=== PATIENT | female | born 1950 | race Caucasian/White ===

== ENCOUNTER → 2017-08-16 | Outpatient (CLI) | payer BC, MEDICARE ==
--- NOTE | 2017-08-17 09:42 | MM ---
Reason for exam: screening (asymptomatic). Last mammogram was performed 1 year ago. History: Patient is postmenopausal and is nulliparous. Implant Removal of both breasts, 2002. Silicone gel implants in both breasts. Took estrogen for 7 years. Physical Findings: A clinical breast exam by your physician is recommended on an annual basis and results should be correlated with mammographic findings. MG 3D Screening Mammo W/Cad Bilateral CC and MLO view(s) were taken. Prior study comparison: August 13, 2016, bilateral MG 3d screening mammo w/cad. August 12, 2015, right breast MG 3d work up w/cad RT. August 05, 2015, bilateral MG screening mammo w CAD. The breast tissue is heterogeneously dense. This may lower the sensitivity of mammography. No significant changes when compared with prior studies. ASSESSMENT: Benign, BI-RAD 2 RECOMMENDATION: Routine screening mammogram of both breasts in 1 year.
== END | disposition home or self-care (01) ==
LOC: RADMAMWWP 06:40
PROVIDERS: ATTEND Family Medicine
DX: Z12.31 Encounter for screening mammogram for malignant neoplasm of breast (principal)
CPT/HCPCS: 77063; 77067

== ENCOUNTER → 2018-08-21 | Outpatient (CLI) | payer BC, MEDICARE ==
--- NOTE | 2018-08-27 09:40 | MM ---
Reason for exam: screening (asymptomatic). Last mammogram was performed 1 year ago. History: Patient is postmenopausal and is nulliparous. Implant Removal of both breasts, 2002. Silicone gel implants in both breasts. Took estrogen for 7 years. MG 3D Screening Mammo W/Cad Bilateral CC, MLO, and ID view(s) were taken. Prior study comparison: August 16, 2017, bilateral MG 3d screening mammo w/cad. August 13, 2016, bilateral MG 3d screening mammo w/cad. There are scattered fibroglandular densities. Silicone granulomas redemonstrated on the left breast. No significant changes when compared with prior studies. ASSESSMENT: Benign, BI-RAD 2 RECOMMENDATION: Routine screening mammogram of both breasts in 1 year.
== END | disposition home or self-care (01) ==
LOC: RADMAMWWP 06:39
PROVIDERS: ATTEND Family Medicine
DX: Z12.31 Encounter for screening mammogram for malignant neoplasm of breast (principal)
CPT/HCPCS: 77063; 77067

== ENCOUNTER → 2019-08-23 | Outpatient (CLI) | payer MEDICARE, BC ==
--- NOTE | 2019-08-24 13:55 | MM ---
Reason for exam: screening (asymptomatic). Last mammogram was performed 1 year ago. History: Patient is postmenopausal and is nulliparous. Implant Removal of both breasts, 2002. Silicone gel implants in both breasts. Took hormonal contraceptives for 7 years. Took estrogen for 7 years. Physical Findings: A clinical breast exam by your physician is recommended on an annual basis and results should be correlated with mammographic findings. MG 3D Screening Mammo W/Cad Bilateral CC and MLO view(s) were taken. Prior study comparison: August 21, 2018, bilateral MG 3d screening mammo w/cad. August 16, 2017, bilateral MG 3d screening mammo w/cad. The breast tissue is heterogeneously dense. This may lower the sensitivity of mammography. There are benign appearing round calcifications bilaterally. There is no new discrete abnormality. Retained silicone inner lower quadrant left breast redemonstrated. ASSESSMENT: Benign, BI-RAD 2 RECOMMENDATION: Routine screening mammogram of both breasts in 1 year.
== END | disposition home or self-care (01) ==
LOC: RADMAMWWP 07:03
PROVIDERS: ATTEND Family Medicine
DX: Z12.31 Encounter for screening mammogram for malignant neoplasm of breast (principal)
CPT/HCPCS: 77063; 77067

== ENCOUNTER → 2019-09-28 | Outpatient (CLI) | payer BC, MEDICARE ==
--- NOTE | 2019-09-28 12:27 | CTL ---
EXAMINATION TYPE: CT Low Dose Lung DATE OF EXAM ORDERED: 09/28/2019 HISTORY: Personal tobacco use history. Lung cancer screening CT DLP: 79.[address] CTDI: 2.4 mGy Automated exposure control for dose reduction was used. SCREENING VISIT: Initial COMPARISON: None TECHNIQUE: Low dose computed tomography scan was performed through the chest at 1 mm thick sections a nd reconstructed images in the coronal plane at [address] DIAGNOSTIC QUALITY: Satisfactory FINDINGS: LUNG NODULES: Present, detailed below: There is a 0.7 cm area of pneumonitis change within the peripheral lateral right lower lung field. Se antonio 4 image 151. Follow-up is recommended. LUNGS: COPD: Severity: None Fibrosis: Severity: None Lymph nodes: None Other findings: None RIGHT PLEURAL SPACE: Effusion: None Calcification: None Thickening: None Pneumothorax: None LEFT PLEURAL SPACE: Effusion: None Calcification: None Thickening: None Pneumothorax: None HEART: Heart Size: Normal Coronary calcification: Mild Pericardial effusion: None OTHER FINDINGS: Upper abdomen: Normal Bony thorax: Normal Supraclavicular region: Normal Other: Ascending thoracic aorta at the level the main pulmonary artery measures 3.4 cm. The main pul monary artery at the bifurcation measures 2.6 cm. Tracheobronchial calcification is noted. IMPRESSION: Probably benign findings right peripheral lung FOLLOW UP CT CHEST RECOMMENDATION: Follow-up standard CT chest [address] LUNG RAD: 3
== END | disposition home or self-care (01) ==
LOC: RADCTMAIN 10:45
PROVIDERS: ATTEND Family Medicine
DX: Z12.2 Encounter for screening for malignant neoplasm of respiratory organs (principal); Z87.891 Personal history of nicotine dependence

== ENCOUNTER → 2020-04-07 | Outpatient (CLI) | payer BC ==
--- NOTE | 2020-04-07 15:36 | CT ---
EXAMINATION TYPE: CT chest wo con DATE OF EXAM: 04/07/2020 COMPARISON: 09/28/2019 HISTORY: pulmonary nodule CT DLP: 189 mGycm, Automated exposure control for dose reduction was used. CONTRAST: Performed injected with 0 mL of Isovue 300. TECHNIQUE: Axial images were obtained at 5 mm thick sections. Reconstructed images are reviewed on [email or web address] computer in the coronal plane. FINDINGS: Portion of the thyroid visualized is normal. There is a small area of pneumonitis in the periphery of the right midlung. Series 4 image 30. This a ppears slightly less intense but measures 0.7 cm essentially unchanged from the comparison. Continued monitoring is recommended. No enlarged mediastinal or hilar adenopathy is evident. The ascending aorta diameter at the level o f the main pulmonary artery is 3.5 cm. The main pulmonary artery diameter at the bifurcation is 2.[address] sections are obtained through the upper abdomen. There is marked hydronephrosis of the rig ht kidney. IMPRESSIONS: 1. Area of pneumonitis within the periphery of the right lung appears slightly improved over the inte rval with a similar sized prior exam. Continued monitoring is recommended. 2. Marked right hydronephrosis additional workup with ultrasound is recommended.
== END | disposition home or self-care (01) ==
LOC: RADCTMAIN 11:37
PROVIDERS: ATTEND Family Medicine
DX: J18.9 Pneumonia, unspecified organism (principal)
CPT/HCPCS: 71250

== ENCOUNTER → 2020-05-02 | Outpatient (CLI) | payer BC ==
--- NOTE | 2020-05-02 12:30 | US ---
EXAMINATION TYPE: US kidneys/renal and bladder DATE OF EXAM: 05/02/2020 COMPARISON: NONE CLINICAL HISTORY: N13.30 HYDRONEPHROSIS. patient states no pain but recent CT showed right hydronephr osis EXAM MEASUREMENTS: Right Kidney: 11.3 x 4.7 x 5.4 cm Left Kidney: 8.9 x 3.3 x 4.2 cm Right Kidney: Severe hydronephrosis seen Left Kidney: No hydronephrosis or masses seen Bladder: wnl Bilateral Jets seen: Yes IMPRESSION: 1. Severe right hydronephrosis.
== END | disposition home or self-care (01) ==
LOC: RADUSWWP 10:37
PROVIDERS: ATTEND Family Medicine
DX: N13.30 Unspecified hydronephrosis (principal)
CPT/HCPCS: 76770

== ENCOUNTER → 2020-06-17 | Outpatient (CLI) | payer BC ==
--- NOTE | 2020-06-17 14:04 | CT ---
EXAMINATION TYPE: CT abdomen pelvis wo con DATE OF EXAM: 06/17/2020 COMPARISON: Ultrasound kidneys 05/02/2020 HISTORY: Hydronephrosis CT DLP: 313.70 mGycm Automated exposure control for dose reduction was used. TECHNIQUE: Helical acquisition of images was performed from the lung bases through the pelvis. CONTRAST: Performed without Oral Contrast and without intravenous contrast. FINDINGS: LUNG BASES: Normal. LIVER: Normal attenuation and size. BILIARY SYSTEM: No intrahepatic or extrahepatic biliary ductal dilatation. PANCREAS: No peripancreatic stranding or fluid collection. SPLEEN: Not enlarged. ADRENALS: Normal. KIDNEYS: The right kidney demonstrates a duplicated renal collecting system. Duplicated right uretera l system is difficult to evaluate without intravenous contrast. There is no hydroureter. There is a n onobstructing 3 mm calculus of the right renal lower pole. The left kidney demonstrates no hydronephr osis, hydroureter, or nephrolithiasis. BOWEL: No obstruction or thickening. Normal appendix. pelvis PERITONEUM: No pneumoperitoneum. No free fluid. LYMPH NODES: No lymphadenopathy. PELVIS: Underdistended urinary bladder. Status post hysterectomy. VASCULATURE: No abdominal aortic aneurysm. MUSCULOSKELETAL: Degenerative changes of the spine. IMPRESSION: 1. 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 Abrupt transition is seen at the ureteropelvic junctions and likely represents stenosis. Recomme nd further evaluation with CT urogram. Presence of duplicated right ureteral system can also be furth er evaluated with CT urogram. 2. Nonobstructing 3 mm right renal calculus. 3. No left hydronephrosis.
== END | disposition home or self-care (01) ==
LOC: RADCTMAIN 10:16
PROVIDERS: ATTEND Urology
DX: N13.2 Hydronephrosis with renal and ureteral calculous obstruction (principal)
CPT/HCPCS: 74176

== ENCOUNTER → 2020-07-11 | Outpatient (CLI) | payer BC ==
--- NOTE | 2020-07-11 11:55 | CT ---
EXAMINATION TYPE: CT urogram wo/w con DATE OF EXAM: 07/11/2020 COMPARISON: 06/17/2020 HISTORY: Unspecified Hydronephrosis CT DLP: 2027 mGycm CONTRAST: Performed and without and with IV Contrast, patient injected with 100 mL of Isovue 300. CT Urography was performed with unenhanced followed by enhanced images of the kidneys, ureters and ur inary bladder. Delayed images were obtained. 3d reconstruction was performed at a separate work sta tion. FINDINGS: KIDNEYS/BLADDER: Identified is a duplicated right-sided renal collecting system with severe hydroneph rosis of both moieties. Delayed images were obtained up to 20 minutes which demonstrate poor visualiz ation of the proximal one third of the right ureter and UPJ. Contrast is seen within the mid and dist al portions of the right ureter which do not appear to be dilated. Suspect congenital or acquired UPJ obstruction or stenosis where the 2 ureters meet proximally. There is nonobstructing calculus lower pole right kidney measuring 3 mm. The left kidney is free of hydronephrosis or nephrolithiasis. No di stinct renal mass. Urinary bladder grossly unremarkable. LUNG BASES-: No visible nodule. No infiltrate. LIVER/GB: No calcified gallstones. No space occupying hepatic lesion. Biliary tree is of normal ca liber. PANCREAS: No inflammation. No distinct mass. SPLEEN: No splenic enlargement. No lesion seen. ADRENALS: No nodule. No thickening. BOWEL: Normal appendix. Normal bowel caliber. No inflammation. GENITAL ORGANS: No gross abnormality. LYMPH NODES: No greater than 1cm abdominal or pelvic lymph nodes are appreciated. AORTA: No significant abnormality. OSSEOUS STRUCTURES: No significant abnormality is seen. OTHER: No significant additional abnormality is seen. IMPRESSION: 1. duplicated right-sided renal collecting system with severe hydronephrosis of both moieties. Suspec t congenital or acquired UPJ obstruction or stenosis where the 2 ureters meet proximally
== END | disposition home or self-care (01) ==
LOC: RADCTMAIN 09:43
PROVIDERS: ATTEND Urology
DX: N13.30 Unspecified hydronephrosis (principal)
CPT/HCPCS: 82565; 84520; 74178; 36415; 74400; Q9967

== ENCOUNTER → 2020-08-25 | Outpatient (CLI) | payer BC ==
[2020-08-25 08:55] LABS: Basophils # (A) 0.1 k/uL (0-0.2); Basophils % (A) 1 %; Eosinophils # (A) 0.2 k/uL (0-0.7); Eosinophils % (A) 3 %; HCT 43.9 % (34.0-46.0); HGB 14.6 gm/dL (11.4-16.0); Lymphocytes # (A) 1.3 k/uL (1.0-4.8); Lymphocytes % (A) 28 %; MCH 30.9 pg (25.0-35.0); MCHC 33.3 g/dL (31.0-37.0); MCV 92.8 fL (80.0-100.0); Monocytes # (A) 0.3 k/uL (0-1.0); Monocytes % (A) 7 %; Neutrophils # (A) 2.8 k/uL (1.3-7.7); Neutrophils % (A) 58 %; Platelet Count 278 k/uL (150-450); RBC 4.73 m/uL (3.80-5.40); RDW 12.7 % (11.5-15.5); WBC 4.7 k/uL (3.8-10.6)
[2020-08-25 09:07] LABS: Calcium 11.5 mg/dL (8.4-10.2); Potassium 4.9 mmol/L (3.5-5.1)
[2020-08-25 09:11] LABS: Amorphous Sediment,Urine Occasional /hpf; Appearance,Urine Cloudy (Clear); Bilirubin,Urine Negative (Negative); Blood,Urine Negative (Negative); Color,Urine Yellow; Glucose,Urine (UA) Negative (Negative); Hyaline Casts,Urine 77 /lpf (0-2); Ketones,Urine Negative (Negative); Leukocyte Esterase,Urine Small (Negative); Mucus,Urine Few /hpf; Nitrite,Urine Negative (Negative); PH, Urine 5.5 (5.0-8.0); Protein,Urine Trace (Negative); RBC,Urine <1 /hpf (0-5); Specific Gravity,Urine 1.023 (1.001-1.035); Squamous Epithelial Cell,Urine 1 /hpf (0-4); Urobilinogen,Urine <2.0 mg/dL (<2.0); WBC,Urine 4 /hpf (0-5)
--- NOTE | 2020-08-25 09:11 | XR ---
EXAMINATION TYPE: XR chest 2V DATE OF EXAM: 08/25/2020 COMPARISON: None HISTORY: 70-year-old female presurgical evaluation. Z01.818,N13.30,R31.1,N20.0 TECHNIQUE: PA and lateral views FINDINGS: The cardiomediastinal silhouette, aorta, and pulmonary vasculature are within normal limits. Mild hyp erinflation likely due to depth of inspiration. Otherwise, lungs and pleural spaces are clear. IMPRESSION: No acute cardiopulmonary process.
== END | disposition home or self-care (01) ==
LOC: LABPAT 07:51
PROVIDERS: ATTEND Urology
DX: Z01.818 Encounter for other preprocedural examination (principal); N20.0 Calculus of kidney; N13.30 Unspecified hydronephrosis; R31.1 Benign essential microscopic hematuria
CPT/HCPCS: 80048; 81001; 85025; 87086

== ENCOUNTER 2020-09-01 08:16 | Day surgery (SDC) | payer BC ==
[2020-08-26 15:35] VITALS: BMI 21.4
[~2020-09-01 08:16] MED LIST: DEXAMETHASONE SOD PHOSPHATE 4 MG/ML 1 ML VIAL IV ONE; HYDROmorphone 0.5 MG/0.5 ML SYRINGE IVP PRN; LACTATED RINGERS 1,000 ML IV SCH; LIDOCAINE 1% (10MG/ML) FOR IV START INTRADERMA PRN; ONDANSETRON 4 MG/2 ML VIAL IVP ONE; SCOPOLAMINE 1.5MG/72HR PATCH TRANSDERM ONE
[2020-09-01 09:37] VITALS: TEMP 98.2
[2020-09-01] MEDS ORDERED: MIDAZOLAM 2 MG/2 ML VIAL IVP ONE (09:46)
--- NOTE | 2020-09-01 09:57 | P.HPIHPCON ---
History of Present Illness H&P Date: 09/01/20 Chief Complaint: Microscopic hematuria, right hydronephrosis, right renal ca lculi This is a 70-year-old female with history of microscopic hematuria. She underwent one a CT urogram that demonstrated evidence of right-sided hydronephrosis, with a duplicated system. There was also a right-sided renal stone. Her urine cytology was concerning for high-grade transitional cell carcinoma. I discussed with her given this finding I recommend we proceed to the OR with a cystoscopy, possible bladder biopsies. I also discussed with him we'll do a right ureteroscopy given her hydronephrosis to rule out malignancy as the cause of her [place]. I discussed with her that we will address her stone on the right side during the ureteroscopy. Discussed with her the risk which includes but not limited to bleeding, infection, injury to the ureter. Discussed all potential of needing future procedures. She understood all the risk and agreed to proceed with cystoscopy, right ureteroscopy, with holmium laser lithotripsy, possible bladder biopsy, possible stent Consent for Procedure: I have explained the operation/procedure to the patient, including the risks, benefits, side effects, alternative therapies (including not receiving the proposed treatment or service), the likelihood of the patient achieving his/her goals, and potential recuperation problems for the procedure/sedation/analgesia, as well as any blood products, if indicated. I also explained to the patient the risks, benefits and side effects of the alternatives, as well as the risks related to not receiving the proposed procedure, care, treatment, or services. Past Medical History Past Medical History: Neurologic Disorder Additional Past Medical History / Comment(s): hx. migraines, kidney stones History of Any Multi-Drug Resistant Organisms: None Reported Past Surgical History: Hysterectomy Additional Past Surgical History / Comment(s): COLONOSCOPY Past Anesthesia/Blood Transfusion Reactions: No Reported Reaction Smoking Status: Former smoker - Past Family History Mother Family Medical History: No Reported History Medications and Allergies Home Medications Medication Instructions Recorded Confirmed Type SUMAtriptan succinate [Imitrex] 50 mg PO ONCE PRN 07/30/14 08/26/20 History Calcium Carbonate [Calcium] 600 mg PO DAILY 06/17/17 08/26/20 History Cholecalciferol [Vitamin D3] 1,000 unit PO DAILY 06/17/17 08/26/20 History Cholecalciferol [Vitamin D3 (25 1,000 unit PO DAILY 08/26/20 08/26/20 History Mcg = 1000 Iu)] Allergies Allergy/AdvReac Type Severity Reaction Status Date / Time No Known Allergies Allergy Verified 09/01/20 09:37 Surgical - Exam Vital Signs Temp Pulse Resp BP Pulse Ox 98.2 F 86 16 142/77 100 09/01/20 09:35 09/01/20 09:35 09/01/20 09:35 09/01/20 09:35 09/01/20 09:35 - General well developed, well nourished, no distress - Respiratory normal expansion, normal respiratory effort - Abdomen Abdomen: soft, non tender Assessment and Plan Assessment: -cystoscopy, right ureteroscopy, with holmium laser lithotripsy, possible bladder biopsy, possible stent
--- NOTE | 2020-09-01 10:08 | XR ---
EXAMINATION TYPE: XR KUB DATE OF EXAM: 09/01/2020 Comparison: None Clinical History: 70-year-old female kidney stones, preop lithotripsy Findings: Nonobstructive bowel gas pattern. Moderate stool in the right side of the abdomen. Scattered colonic ureter extending distally to the rectum. No dilated small bowel loops. 4 mm right mid abdominal calci fication. Phlebolith in the left side of the pelvis. Impression: 4 mm right-sided renal calculus. Nonobstructive bowel gas pattern. Moderate stool in the right side o f the abdomen.
[2020-09-01] MEDS ORDERED: GLYCOPYRROLATE 0.2 MG/ML 2 ML VIAL ONE (10:23)
[2020-09-01] MEDS ORDERED: fentaNYL (PF) 50 MCG/ML 2 ML AMP ONE (10:23)
[2020-09-01] MEDS ORDERED: PROPOFOL 10 MG/ML 50 ML VIAL IV ONE (10:23)
[2020-09-01] MEDS ORDERED: SUCCINYLCHOLINE CHLORIDE 100 MG/5 ML SYR IV ONE (10:23)
[2020-09-01] MEDS ORDERED: LIDOCAINE 1% INJ 10MG/ML (20 ML MDV) ONE (10:23)
--- NOTE | 2020-09-01 12:14 | P.OP ---
Date of Procedure: 09/01/20 Preoperative Diagnosis: Right-sided hydronephrosis, atypical cytology Postoperative Diagnosis: Same Procedure(s) Performed: Cystoscopy, bilateral retrograde pyelogram right ureteroscopy, stent placement, bladder biopsy and fulguration Implants: 6-Iranian by 26 cm stent Anesthesia: LUZMARIA Surgeon: Marcelino Engle Estimated Blood Loss (ml): 5 Pathology: other (Right renal cytology, left renal cytology, right ureteral cytology, bladder biopsy) Condition: stable Disposition: PACU Indications for Procedure: This is a 70-year-old female with history of microscopic hematuria. She underwent one a CT urogram that demonstrated evidence of right-sided hydroneph rosis, with a duplicated system. There was also a right-sided renal stone. Her urine cytology was concerning for high-grade transitional cell carcinoma. I discussed with her given this finding I recommend we proceed to the OR with a cystoscopy, possible bladder biopsies. I also discussed with him we'll do a right ureteroscopy given her hydronephrosis to rule out malignancy as the cause of her [place]. I discussed with her that we will address her stone on the right side during the ureteroscopy. Discussed with her the risk which includes but not limited to bleeding, infection, injury to the ureter. Discussed all potential of needing future procedures. She understood all the risk and agreed to proceed with cystoscopy, right ureteroscopy, with holmium laser lithotripsy, possible bladder biopsy, possible stent Operative Findings: Normal left retrograde pyelogram Cystoscopy showed erythematous area along the trigone and posterior bladder wall, biopsy was taken of both this areas -Right retrograde pyelogram showed severe narrowing tortuosity at the UPJ, no abnormality within the kidney or the ureter. Stone could be partially visualized in the lower pole, and was impacted with him a narrowed infundibulam. Description of Procedure: Patient was brought to the operating room, general anesthesia was induced. She was prepped and draped in sterile fashion a placed in dorsal lithotomy position. Cystoscopy fitted with 21-Iranian sheath was inserted per urethra cystoscopy was performed which showed 2 erythematous area along the trigone and the posterior bladder wall, otherwise cystoscopy was unremarkable. The erythematous areas were biopsied using the biopsy forceps and were thoroughly fulgurated. Attention was then carried to the left ureteral orifice which was intubated with a 6-Iranian open-ended catheter, urine cytology was obtained from the left kidney. Next, a retrograde pyelogram was performed showed no filling defect or hydronephrosis. There was adequate drainage of contrast on that side. Attention was then carried to the right ureteral orifice which was intubated with a 6-Iranian open-ended catheter, retrograde pyelogram was performed on that side showed no filling defect or narrowing along the course of the ureter. At the UPJ there was a pinpoint narrowing, with severe hydronephrosis. Delayed im ages showed no drainage of contrast from the right kidney. This time a sensor wire was advanced through the catheter catheter was removed the wire in place. Next a ureteroscope was advanced over the wire and into the kidney. Of note there was difficulty manipulating the scope past the area of narrowing. Complete renoscopy was performed which showed no abnormality within the kidney. Renal cytology was obtained from the kidney. Of note there was only a single moiety visualized. Stone was partially visualized in the lower pole but it was stuck within a narrowed infundibulum which made access the stone difficult. Additionally there was a concern of losing access into the kidney given the difficulty in advancing the scope into the kidney. Given this finding the stone was not fragmented. At this time pullback ureteroscopy was performed of the UPJ which showed no abnormality but of note there was complete tortuosity and narrowing. At that point there was difficulty passing the wire back into the kidney, but after multiple attempts I was able to advance the wire into the kidney and the scope was backloaded over the wire with some difficulty I was able to reinserted into the kidney. At this time pullback ureteroscopy was performed showed no abnormality within the ureter, of note renal cytology was obtained of the UPJ. At this time the ureteroscope was withdrawn and a 6-Iranian by 26 cm stent was passed over the wire, the proximal curl was visualized on fluoroscopy and the distal curl was visualized using the cystoscope. The bladder was emptied and of the case. The patient tolerated the procedure well was taken to PACU in stable condition
[2020-09-01 12:21] VITALS: RESP 16
--- NOTE | 2020-09-01 13:14 | FL ---
Fluoroscopy HISTORY: Cystoscopy with right stent placement 42 seconds fluoroscopy time supplied to the referring clinician. 1 intraoperative C-arm images docum ent the procedure. See dictated report from urology.
[2020-09-01] MEDS ORDERED: IBUPROFEN 200 MG TAB PO ONE (13:23)
[2020-09-01 13:55] VITALS: PULSE 99
[2020-09-01 13:56] VITALS: BP 147/83
== END 2020-09-01 14:11 | disposition home or self-care (01) ==
LOC: OR 08:16
PROVIDERS: ATTEND Urology
DX: N13.2 Hydronephrosis with renal and ureteral calculous obstruction (principal); R31.29 Other microscopic hematuria; Z87.442 Personal history of urinary calculi; G43.909 Migraine, unspecified, not intractable, without status migrainosus; Z90.710 Acquired absence of both cervix and uterus; Z87.891 Personal history of nicotine dependence; R29.90 Unspecified symptoms and signs involving the nervous system; Z79.899 Other long term (current) drug therapy
CPT/HCPCS: 74420; 74018; 52332; 52224; C2625; C1758 ×4; C1769; J2250; J1100; J0690; J2405; J2001; J3010; J0330; J2704; 88108; 88305

== ENCOUNTER → 2020-10-10 | Outpatient (CLI) | payer BC ==
--- NOTE | 2020-10-13 11:45 | MM ---
Reason for exam: screening (asymptomatic). Last mammogram was performed 1 year and 2 months ago. History: Patient is postmenopausal and is nulliparous. Implant Removal of both breasts, 2002. Silicone gel implants in both breasts. Took hormonal contraceptives for 7 years. Took estrogen for 7 years. Physical Findings: A clinical breast exam by your physician is recommended on an annual basis and results should be correlated with mammographic findings. MG 3D Screening Mammo W/Cad Bilateral CC and MLO view(s) were taken. Prior study comparison: August 23, 2019, bilateral MG 3d screening mammo w/cad. August 21, 2018, bilateral MG 3d screening mammo w/cad. There are scattered fibroglandular densities. Stable asymmetric left regional inner lower quadrant retained silicone. There is no discrete abnormality. ASSESSMENT: Benign, BI-RAD 2 RECOMMENDATION: Routine screening mammogram of both breasts in 1 year.
== END | disposition home or self-care (01) ==
LOC: RADMAMWWP 07:13
PROVIDERS: ATTEND Family Medicine
DX: Z12.31 Encounter for screening mammogram for malignant neoplasm of breast (principal)
CPT/HCPCS: 77063; 77067

== ENCOUNTER → 2021-10-12 | Outpatient (CLI) | payer BC ==
--- NOTE | 2021-10-14 09:21 | MM ---
Reason for exam: screening (asymptomatic). Last mammogram was performed 1 year ago. History: Patient is postmenopausal and is nulliparous. Implant Removal of both breasts, 2002. Silicone gel implants in both breasts. Took hormonal contraceptives for 7 years. Took estrogen for 7 years. Physical Findings: A clinical breast exam by your physician is recommended on an annual basis and results should be correlated with mammographic findings. MG 3D Screening Mammo W/Cad Bilateral CC and MLO view(s) were taken. Prior study comparison: October 10, 2020, bilateral MG 3d screening mammo w/cad. August 23, 2019, bilateral MG 3d screening mammo w/cad. The breast tissue is heterogeneously dense. This may lower the sensitivity of mammography. There is chronic nodularity in the left breast. No significant changes when compared with prior studies. ASSESSMENT: Benign, BI-RAD 2 RECOMMENDATION: Routine screening mammogram of both breasts in 1 year.
== END | disposition home or self-care (01) ==
LOC: RADMAMWWP 07:22
PROVIDERS: ATTEND Family Medicine
DX: Z12.31 Encounter for screening mammogram for malignant neoplasm of breast (principal); Z78.0 Asymptomatic menopausal state
CPT/HCPCS: 77063; 77067

== ENCOUNTER 2022-02-16 12:04 | Inpatient (IN) | payer MEDICARE, BC ==
[2022-02-16] MEDS ORDERED: SODIUM CHLORIDE 0.9% 1,000 ML IV STA (12:12)
[2022-02-16] MEDS ORDERED: DILTIAZEM 5 MG/ML 5 ML VIAL IVP STA (12:12)
[2022-02-16] MEDS ORDERED: DILTIAZEM DRIP BOLUS FROM BAG 1 MG SOLN IV ONE (12:26)
[2022-02-16] MEDS: DILTIAZEM 125 MG in SODIUM CHLORIDE 0.9% 100 ML IV SCH (12:27)
--- NOTE | 2022-02-16 12:37 | XR ---
EXAMINATION TYPE: XR chest 1V portable DATE OF EXAM: 02/16/2022 Comparison: 08/25/2020 Clinical History: 71-year-old female chest pain Findings: Heart upper limits of normal in size. Perihilar interstitial density especially in the mid and lower lungs. Patchy lower lung opacities are also noted. Impression: Borderline heart size and some interstitial and perihilar density. Correlate for mild CHF with pulmon jonathan vascular congestion. Mild patchy lower lung areas of atelectasis and/or early infiltrates also no donaldo.
[2022-02-16 12:54] LABS: Basophils # (A) 0.1 k/uL (0-0.2); Basophils % (A) 1 %; Eosinophils # (A) 0.1 k/uL (0-0.7); Eosinophils % (A) 1 %; HGB 12.5 gm/dL (11.4-16.0); Lymphocytes # (A) 1.5 k/uL (1.0-4.8); Lymphocytes % (A) 20 %; MCH 32.2 pg (25.0-35.0); MCHC 33.8 g/dL (31.0-37.0); MCV 95.5 fL (80.0-100.0); Mean Platelet Volume 8.3; Monocytes # (A) 0.5 k/uL (0-1.0); Monocytes % (A) 6 %; Neutrophils # (A) 5.5 k/uL (1.3-7.7); Neutrophils % (A) 71 %; Platelet Count 347 k/uL (150-450); RBC 3.87 m/uL (3.80-5.40); RDW 14.1 % (11.5-15.5); WBC 7.7 k/uL (3.8-10.6)
[2022-02-16 13:15] LABS: Prothrombin Time 11.2 sec (9.0-12.0)
[2022-02-16 13:19] LABS: Albumin 3.8 g/dL (3.5-5.0); Calcium 8.7 mg/dL (8.4-10.2); Potassium 4.2 mmol/L (3.5-5.1); Total Bilirubin 0.5 mg/dL (0.2-1.3); Total Protein 6.2 g/dL (6.3-8.2)
[2022-02-16 13:32] LABS: Partial Thromboplastin Time 20.7 sec (22.0-30.0)
[2022-02-16] MEDS ORDERED: HEPARIN SODIUM 1,000 UN/ML (10ML VL) IV ONE (14:59)
[2022-02-16] MEDS ORDERED: HEPARIN SODIUM 1,000 UN/ML (10ML VL) IV PRN (14:59)
[2022-02-16] MEDS ORDERED: SUMAtriptan succinate 50 MG TAB PO PRN (15:01)
[2022-02-16] MEDS ORDERED: ONDANSETRON 4 MG/2 ML VIAL IVP PRN (15:10)
[2022-02-16] MEDS ORDERED: TEMAZEPAM 15 MG CAP PO PRN (15:10)
[2022-02-16] MEDS ORDERED: NALOXONE 0.4 MG/ML 1 ML VIAL IV PRN (15:10)
[2022-02-16] MEDS ORDERED: DOCUSATE 100 MG CAP PO PRN (15:10)
[2022-02-16] MEDS ORDERED: HYDROcodone/APAP 5-325MG 1 EACH TAB PO PRN (15:10)
--- NOTE | 2022-02-16 15:10 | ED ---
Arrhythmia/Palpitations HPI - General Chief Complaint: Arrhythmia/Palpitations Stated Complaint: rapid heart rate Time Seen by Provider: 02/16/22 12:05 Source: patient Mode of arrival: EMS - History of Present Illness Initial Comments: Patient complains of palpitations. Her symptoms have been present for 3 days. Nothing makes it better or worse. She has no chest pain or pressure or tightness. She has no nausea or vomiting. She has no diaphoresis. She denies any recent long plane or car rides. She denies any sick contacts. She has no calf pain or swelling. She has taken no medicines for this. She wasn't doing anything when it began. - Related Data Home Medications Medication Instructions Recorded Confirmed SUMAtriptan succinate [Imitrex] 50 mg PO DAILY PRN 07/30/14 02/16/22 Calcium Carbonate [Calcium] 600 mg PO DAILY 06/17/17 02/16/22 Cholecalciferol [Vitamin D3 (25 50 mcg PO DAILY 02/16/22 02/16/22 Mcg = 1000 Iu)] Allergies Allergy/AdvReac Type Severity Reaction Status Date / Time No Known Allergies Allergy Verified 02/16/22 13:49 Review of Systems ROS Statement: Those systems with pertinent positive or pertinent negative responses have been documented in the HPI. ROS Other: All systems not noted in ROS Statement are negative. Past Medical History Past Medical History: Neurologic Disorder Additional Past Medical History / Comment(s): hx. migraines History of Any Multi-Drug Resistant Organisms: None Reported Past Surgical History: Hysterectomy Additional Past Surgical History / Comment(s): COLONOSCOPY Past Anesthesia/Blood Transfusion Reactions: No Reported Reaction Past Psychological History: No Psychological Hx Reported Smoking Status: Former smoker Past Alcohol Use History: Occasional Past Drug Use History: None Reported - Past Family History Mother Family Medical History: No Reported History General Exam General appearance: alert, in no apparent distress Head exam: Present: atraumatic, normocephalic, normal inspection Eye exam: Present: normal appearance, PERRL, EOMI. Absent: scleral icterus, conjunctival injection, periorbital swelling ENT exam: Present: normal exam, mucous membranes moist Neck exam: Present: normal inspection. Absent: tenderness, meningismus, lymphadenopathy Respiratory exam: Present: normal lung sounds bilaterally. Absent: respiratory distress, wheezes, rales, rhonchi, stridor Cardiovascular Exam: Present: tachycardia, normal heart sounds. Absent: systolic murmur, diastolic murmur, rubs, gallop, clicks GI/Abdominal exam: Present: soft, normal bowel sounds. Absent: distended, tenderness, guarding, rebound, rigid Extremities exam: Present: normal inspection, full ROM, normal capillary refill. Absent: tenderness, pedal edema, joint swelling, calf tenderness Back exam: Present: normal inspection Neurological exam: Present: alert, oriented X3, CN II-XII intact Psychiatric exam: Present: normal affect, normal mood Skin exam: Present: warm, dry, intact, normal color. Absent: rash Course Vital Signs 02/16/22 02/16/22 02/16/22 12:05 12:20 12:30 Temperature 98.1 F Pulse Rate 172 H 172 H 93 Respiratory 18 22 16 Rate Blood Pressure 119/100 120/106 119/100 O2 Sat by Pulse 96 98 98 Oximetry 02/16/22 02/16/22 02/16/22 12:40 13:10 13:24 Temperature Pulse Rate 109 H 120 H 140 H Respiratory 16 20 20 Rate Blood Pressure 141/95 129/100 139/83 O2 Sat by Pulse 97 96 98 Oximetry 02/16/22 14:56 Temperature Pulse Rate 140 H Respiratory 18 Rate Blood Pressure 130/106 O2 Sat by Pulse 92 L Oximetry EKG Findings - EKG Comments: EKG Findings:: Twelve-lead EKG shows ventricular rate 166 bpm, no P waves present, no ST elevation or depression, interpreted by me as atrial fibrillation with rapid ventricular response. Medical Decision Making - Medical Decision Making Patient presents with palpitations. Her twelve-lead EKG shows atrial fibrillation. I gave her a bolus of IV Cardizem and placed her on a Cardizem drip. I also ordered IV heparin. I have consult to cardiology. Patient will be admitted to the hospital. - Lab Data Result diagrams: 02/16/22 12:26 02/16/22 12:26 Lab Results 02/16/22 02/16/22 02/16/22 Range/Units 12:26 12:26 12:26 WBC 7.7 (3.8-10.6) k/uL RBC 3.87 (3.80-5.40) m/uL Hgb 12.5 (11.4-16.0) gm/dL Hct 37.0 (34.0-46.0) % MCV 95.5 (80.0-100.0) fL MCH 32.2 (25.0-35.0) pg MCHC 33.8 (31.0-37.0) g/dL RDW 14.1 (11.5-15.5) % Plt Count 347 (150-450) k/uL MPV 8.3 Neutrophils % 71 % Lymphocytes % 20 % Monocytes % 6 % Eosinophils % 1 % Basophils % 1 % Neutrophils # 5.5 (1.3-7.7) k/uL Lymphocytes # 1.5 (1.0-4.8) k/uL Monocytes # 0.5 (0-1.0) k/uL Eosinophils # 0.1 (0-0.7) k/uL Basophils # 0.1 (0-0.2) k/uL PT 11.2 (9.0-12.0) sec INR 1.0 (<1.2) APTT 20.7 L (22.0-30.0) sec Sodium 138 (137-145) mmol/L Potassium 4.2 (3.5-5.1) mmol/L Chloride 108 H (98-107) mmol/L Carbon Dioxide 21 L (22-30) mmol/L Anion Gap 9 mmol/L BUN 23 H (7-17) mg/dL Creatinine 0.90 (0.52-1.04) mg/dL Est GFR (CKD-EPI)AfAm 75 (>60 ml/min/1.73 sqM) Est GFR (CKD-EPI)NonAf 65 (>60 ml/min/1.73 sqM) Glucose 93 (74-99) mg/dL Calcium 8.7 (8.4-10.2) mg/dL Magnesium 2.0 (1.6-2.3) mg/dL Total Bilirubin 0.5 (0.2-1.3) mg/dL AST 52 H (14-36) U/L ALT 62 H (4-34) U/L Alkaline Phosphatase 94 (38-126) U/L Troponin I (0.000-0.034) ng/mL NT-Pro-B Natriuret Pep pg/mL Total Protein 6.2 L (6.3-8.2) g/dL Albumin 3.8 (3.5-5.0) g/dL 02/16/22 02/16/22 Range/Units 12:26 12:26 WBC (3.8-10.6) k/uL RBC (3.80-5.40) m/uL Hgb (11.4-16.0) gm/dL Hct (34.0-46.0) % MCV (80.0-100.0) fL MCH (25.0-35.0) pg MCHC (31.0-37.0) g/dL RDW (11.5-15.5) % Plt Count (150-450) k/uL MPV Neutrophils % % Lymphocytes % % Monocytes % % Eosinophils % % Basophils % % Neutrophils # (1.3-7.7) k/uL Lymphocytes # (1.0-4.8) k/uL Monocytes # (0-1.0) k/uL Eosinophils # (0-0.7) k/uL Basophils # (0-0.2) k/uL PT (9.0-12.0) sec INR (<1.2) APTT (22.0-30.0) sec Sodium (137-145) mmol/L Potassium (3.5-5.1) mmol/L Chloride (98-107) mmol/L Carbon Dioxide (22-30) mmol/L Anion Gap mmol/L BUN (7-17) mg/dL Creatinine (0.52-1.04) mg/dL Est GFR (CKD-EPI)AfAm (>60 ml/min/1.73 sqM) Est GFR (CKD-EPI)NonAf (>60 ml/min/1.73 sqM) Glucose (74-99) mg/dL Calcium (8.4-10.2) mg/dL Magnesium (1.6-2.3) mg/dL Total Bilirubin (0.2-1.3) mg/dL AST (14-36) U/L ALT (4-34) U/L Alkaline Phosphatase (38-126) U/L Troponin I 0.014 (0.000-0.034) ng/mL NT-Pro-B Natriuret Pep 4520 pg/mL Total Protein (6.3-8.2) g/dL Albumin (3.5-5.0) g/dL Critical Care Time Critical Care Time: Yes Total Critical Care Time: 35 Disposition Clinical Impression: Atrial fibrillation Disposition: ADMITTED IP TO THIS HOSP Condition: Fair Referrals: Babar Farr MD [Primary Care Provider] - 1-2 days
[2022-02-16] MEDS ORDERED: FUROSEMIDE 10 MG/ML 2 ML VIAL IV SCH (15:15)
[2022-02-16 15:58] LABS: Basophils # (A) 0.1 k/uL (0-0.2); Basophils % (A) 1 %; Eosinophils # (A) 0.1 k/uL (0-0.7); Eosinophils % (A) 1 %; HCT 36.3 % (34.0-46.0); HGB 12.3 gm/dL (11.4-16.0); Lymphocytes # (A) 1.4 k/uL (1.0-4.8); Lymphocytes % (A) 20 %; MCH 32.1 pg (25.0-35.0); MCHC 33.8 g/dL (31.0-37.0); Monocytes # (A) 0.3 k/uL (0-1.0); Monocytes % (A) 5 %; Neutrophils % (A) 72 %; Platelet Count 310 k/uL (150-450); RBC 3.82 m/uL (3.80-5.40); RDW 14.2 % (11.5-15.5)
[2022-02-16] MEDS: HEPARIN SOD,PORK IN 0.45% NACL 25,000 UNIT in 0.45% NACL 1 250ML.BAG IV SCH (15:58)
[2022-02-16 16:30] LABS: Partial Thromboplastin Time 22.7 sec (22.0-30.0); Prothrombin Time 11.1 sec (9.0-12.0)
--- NOTE | 2022-02-16 17:24 | P.HPIM ---
History of Present Illness H&P Date: 02/16/22 History of Presenting Illness: Patient is a very pleasant 71-year-old female with a past medical history of chronic migraines. She presented to the emergency department with a chief complaint of palpitations. Patient reports these palpitations began 3 days ago while working outside in her yard. Patient reports that she noticed these palpitations worsened with the heat and with exertion, and states that she has been much more fatigued than her baseline normal. She denied having any headache, lightheadedness, dizziness, chest pain, shortness of breath, or experiencing any numbness/tingling/weakness/swelling in her extremities. Patient denies history of cardiac arrhythmias or after being seen by a senior contract specialist. She reports that she follows yearly with her PCP and states up until this point has been in good health with no problems. Patient underwent full evaluation in the emergency department. An EKG was completed revealing atrial fibrillation with RVR to 166 bpm. Chest x-ray revealing borderline heart size with some interstitial and perihilar density correlating for mild CHF with pulmonary vascular congestion. Labs completed. CBC unremarkable. Coags normal findings. CMP revealing mildly elevated AST of 52 and ALT of 62. Troponin negative at 0.014 with repeat troponin of less than 0.012. ProBNP 4520. Patient was admitted under our services with consultation to cardiology for new onset atrial fibrillation with RVR and acute heart failure. Review of systems: Pertinent positives and negatives as discussed in HPI, a complete review of systems was performed and all other systems are negative. Physical exam: Vital signs reviewed and stable. General: Nontoxic, no distress and appears stated age. Derm: Skin warm and dry, normal coloration for ethnicity. Head: Atraumatic, normocephalic and symmetric. Eyes: EOMs intact, no lid lag, and anicteric sclera Mouth: no lip lesions, mucus membranes moist Cardiovascular: Irregularly irregular, rapid rate. no murmur, positive posterior tibial pulses bilaterally, and cap refill < 2 seconds. Scant swelling of bilateral lower extremities. Lungs: Respirations even, regular, and unlabored on room air. Lungs CTA bilaterally, no rhonchi, no rales, no wheezing, and no accessory muscle usage. Abdominal: soft, nontender to palpation, no guarding, no appreciable organomegaly Ext: ROM intact. No gross muscle atrophy, no edema, no contractures Neuro: Speech clear, face symmetrical and CN II-XII grossly intact with no noted focal neuro deficits Psych: Alert and oriented to person, place, time, and situation. Appropriate and pleasant affect. Assessment and Plan of Care: New onset Atrial fibrillation with rapid ventricular rate Acute heart failure, unknown type pending echocardiogram results -Patient started on anticoagulation with heparin bolus followed by infusion. [id number] score 2 for gender and age. -Cardizem bolus followed by infusion, titrate to obtain -Start patient on metoprolol 25 mg daily -Cardiology consulted, appreciate further recommendations -Telemetry monitoring -Trend troponins -Cardiac diet, NPO at midnight -Aspirin, atorvastatin, and metoprolol -Echocardiogram The patient is admitted with an anticipated greater than 2 midnight stay for evaluation of new onset A. fib RVR and acute heart failure CODE STATUS: Full code DVT prophylaxis: Heparin Discussed with: Patient and RN Anticipated discharge date: 2-[address]: Home A total of 44 minutes was spent on the care of this complex patient more than 50% of the time was spent in counseling and care coordination. Andrey Ma NP rendered care for this patient independently, reviewed the findings and plan as documented in the note above. I did not physically speak with or examine the patient on this date. Past Medical History Past Medical History: Neurologic Disorder Additional Past Medical History / Comment(s): hx. migraines History of Any Multi-Drug Resistant Organisms: None Reported Past Surgical History: Hysterectomy Additional Past Surgical History / Comment(s): COLONOSCOPY Past Anesthesia/Blood Transfusion Reactions: No Reported Reaction Past Psychological History: No Psychological Hx Reported Smoking Status: Former smoker Past Alcohol Use History: Occasional Past Drug Use History: None Reported - Past Family History Mother Family Medical History: No Reported History Medications and Allergies Home Medications Medication Instructions Recorded Confirmed Type SUMAtriptan succinate [Imitrex] 50 mg PO DAILY PRN 07/30/14 02/16/22 History Calcium Carbonate [Calcium] 600 mg PO DAILY 06/17/17 02/16/22 History Cholecalciferol [Vitamin D3 (25 50 mcg PO DAILY 02/16/22 02/16/22 History Mcg = 1000 Iu)] Allergies Allergy/AdvReac Type Severity Reaction Status Date / Time No Known Allergies Allergy Verified 02/16/22 13:49 Physical Exam Osteopathic Statement: *. No significant issues noted on an osteopathic structural exam other than those noted in the History and Physical/Consult. Vitals: Vital Signs Temp Pulse Resp BP Pulse Ox 02/16/22 14:56 140 H 18 130/106 92 L 02/16/22 13:24 140 H 20 139/83 98 02/16/22 13:10 120 H 20 129/100 96 02/16/22 12:40 109 H 16 141/95 97 02/16/22 12:30 93 16 119/100 98 02/16/22 12:20 172 H 22 120/106 98 02/16/22 12:05 98.1 F 172 H 18 119/100 96 Intake and Output 02/16/22 02/16/22 02/16/22 06:59 14:59 22:59 Other: Weight 58.513 kg Results CBC & Chem 7: 02/16/22 14:59 02/16/22 12:26 Labs: Abnormal Lab Results - Last 24 Hours (Table) 02/16/22 02/16/22 Range/Units 12:26 12:26 APTT 20.7 L (22.0-30.0) sec Chloride 108 H (98-107) mmol/L Carbon Dioxide 21 L (22-30) mmol/L BUN 23 H (7-17) mg/dL AST 52 H (14-36) U/L ALT 62 H (4-34) U/L Total Protein 6.2 L (6.3-8.2) g/dL
[2022-02-16] MEDS ORDERED: METOPROLOL SUCCINATE (ER) 25 MG TAB.ER.24H PO SCH (17:30)
[2022-02-17 08:16] LABS: Basophils # (A) 0.1 k/uL (0-0.2); Basophils % (A) 1 %; Eosinophils # (A) 0.2 k/uL (0-0.7); Eosinophils % (A) 2 %; HCT 37.7 % (34.0-46.0); HGB 12.6 gm/dL (11.4-16.0); Hypochromasia Slight; Lymphocytes # (A) 1.7 k/uL (1.0-4.8); Lymphocytes % (A) 21 %; MCH 31.9 pg (25.0-35.0); MCHC 33.5 g/dL (31.0-37.0); MCV 95.1 fL (80.0-100.0); Mean Platelet Volume 8.1; Monocytes # (A) 0.4 k/uL (0-1.0); Monocytes % (A) 5 %; Neutrophils # (A) 5.4 k/uL (1.3-7.7); Neutrophils % (A) 69 %; Platelet Count 334 k/uL (150-450); RBC 3.96 m/uL (3.80-5.40); WBC 7.8 k/uL (3.8-10.6)
[2022-02-17 08:30] LABS: Partial Thromboplastin Time 26.5 sec (22.0-30.0); Prothrombin Time 10.8 sec (9.0-12.0)
[2022-02-17 08:39] LABS: Calcium 8.6 mg/dL (8.4-10.2)
[2022-02-17] MEDS ORDERED: HEPARIN SODIUM 1,000 UN/ML (10ML VL) MISCELLANE ONE ×2 (09:02→18:35)
[2022-02-17] MEDS: DILTIAZEM 125 MG in SODIUM CHLORIDE 0.9% 100 ML IV SCH (09:31)
[2022-02-17] MEDS: CALCIUM CARBONATE 500 MG CHEWABLE PO SCH (09:32)
[2022-02-17] MEDS: METOPROLOL SUCCINATE (ER) 50 MG TAB.ER.24H PO SCH (09:32)
[2022-02-17] MEDS: FUROSEMIDE 10 MG/ML 4 ML VIAL IV SCH (09:32)
[2022-02-17] MEDS: CHOLECALCIFEROL 25 MCG (1000 IU) TABLET PO SCH (09:33)
[2022-02-17] MEDS ORDERED: DEXTROSE 5% IN WATER 100 ML with AMIODARONE 150 MG IV ONE (11:45)
[2022-02-17] MEDS ORDERED: AMIODARONE 360 MG in DEXTROSE 5% IN WATER 200 ML IV ONE ×2 (12:00)
--- NOTE | 2022-02-17 12:16 | P.CRDCN ---
History of Present Illness History of present illness: HISTORY OF PRESENTING ILLNESS This is a pleasant 71-year-old female past medical history significant for migraines. She does not follow with a retort unloader. We have been asked to see in consultation for new onset atrial fibrillation. Patient comes to the ER with shortness of breath and palpitations. She states yesterday she was working outside in her yard and had symptoms of shortness and palpitations. She initially thought it was the heat but her symptoms did not improve. She had asso ciated fatigue and lightheadedness. No syncope. An EKG was completed revealing atrial fibrillation with RVR HR 160s. Denies symptoms of chest pain, palpitations, dizziness, syncope or near syncope. Denies any symptoms of orthopnea or PND. Patient denies history of A fib, heart failure, Diabetes, S troke, HTN, PR, Hyperlipidemia. Former smoker quit 20+ years ago. Occasionally drinks alcohol. No illicit drug use. DIAGNOSTICS EKG reveals atrial fibrillation with rapid ventricular response, heart rate 166. Telemetry tracings indicate atrial fibrillation with heart rate [id number] Chest xray heart Limits of normal, some mild pulmonary vascular congestion. Laboratory reviewed, CBC unremarkable, troponin negative 3, TSH within normal limits, sodium 137, potassium 4.0, BUN 23, serum and 0.8, pro-BNP 4520 Current home medications include vitamin D3, Imitrex, calcium. REVIEW OF SYSTEMS At the time of my exam: CONSTITUTIONAL: Denies fever or chills. CARDIOVASCULAR: Denies chest pain, Reports shortness of breath, Denies orthopnea, PND. Reports palpitations. RESPIRATORY: Denies cough. GASTROINTESTINAL: Denies abdominal pain, diarrhea, constipation, nausea or vomiting. MUSCULOSKELETAL: Denies myalgias. NEUROLOGIC: Denies numbness, tingling, headacbe or weakness. ENDOCRINE: Denies fatigue, weight change, polydipsia or polyurina. GENITOURINARY: Denies burning, hematuria or urgency with micturation. HEMATOLOGIC: Denies history of anemia or bleeding. PHYSICAL EXAMINATION Vitals Reviewed CONSTITUTIONAL: No apparent distress. HEENT: Head is normocephalic. Pupils are equal, round. Sclerae anicteric. Mucous membranes of the mouth are moist. No JVD. No carotid bruit. CHEST EXAMINATION: Lungs are clear to auscultation. No chest wall tenderness is noted on palpation or with deep breathing. HEART EXAMINATION Irregular rate and rhythm. S1, S2 heard. No murmurs, gallops or rub. ABDOMEN: Soft, nontender. Positive bowel sounds. EXTREMITIES: 2+ peripheral pulses, no lower extremity edema and no calf tenderness. SKIN: warm, dry NEUROLOGIC EXAMINATION: Patient is awake, alert and oriented x3. ASSESSMENT New onset paroxysmal atrial fibrillation with RVR -[id number] score 2 History of Migraines PLAN Metoprolol 50mg daily Continue IV heparin Stop IV Cardizem Start IV amiodarone bolus and drip Continue cardiac telemetry Eliquis sent to pharmacy with case management assistance on cost Further recommendations based on clinical course Keep NPO after midnight if cardioversion is indicated. Nurse practitioner note has been reviewed by physician. Signing provider agrees with the documented findings, assessment, and plan of care. Past Medical History Past Medical History: Neurologic Disorder Additional Past Medical History / Comment(s): hx. migraines History of Any Multi-Drug Resistant Organisms: None Reported Past Surgical History: Hysterectomy Additional Past Surgical History / Comment(s): COLONOSCOPY Past Anesthesia/Blood Transfusion Reactions: No Reported Reaction Past Psychological History: No Psychological Hx Reported Smoking Status: Former smoker Past Alcohol Use History: Occasional Past Drug Use History: None Reported - Past Family History Mother Family Medical History: No Reported History Medications and Allergies Home Medications Medication Instructions Recorded Confirmed Type SUMAtriptan succinate [Imitrex] 50 mg PO DAILY PRN 07/30/14 02/16/22 History Calcium Carbonate [Calcium] 600 mg PO DAILY 06/17/17 02/16/22 History Cholecalciferol [Vitamin D3 (25 50 mcg PO DAILY 02/16/22 02/16/22 History Mcg = 1000 Iu)] Apixaban [Eliquis] 5 mg PO BID #60 tab 02/17/22 Rx Allergies Allergy/AdvReac Type Severity Reaction Status Date / Time No Known Allergies Allergy Verified 02/16/22 13:49 Physical Exam Vitals: Vital Signs Temp Pulse Pulse Pulse Resp BP BP 02/17/22 04:00 98.0 F 100 16 128/85 02/17/22 02:00 92 16 02/17/22 00:15 98.1 F 92 16 135/75 02/16/22 20:40 102 H 102 H 16 02/16/22 20:33 98.2 F 102 H 98 16 02/16/22 19:22 138 H 18 143/99 02/16/22 18:34 97.8 F 168 H 18 138/96 02/16/22 17:13 142 H 18 145/106 02/16/22 14:56 140 H 18 130/106 02/16/22 13:24 140 H 20 139/83 02/16/22 13:10 120 H 20 129/100 02/16/22 12:40 109 H 16 141/95 02/16/22 12:30 93 16 119/100 02/16/22 12:20 172 H 22 120/106 02/16/22 12:05 98.1 F 172 H 18 119/100 Pulse Ox 02/17/22 04:00 90 L 02/17/22 02:00 02/17/22 00:15 91 L 02/16/22 20:40 02/16/22 20:33 92 L 02/16/22 19:22 98 02/16/22 18:34 98 02/16/22 17:13 100 02/16/22 14:56 92 L 02/16/22 13:24 98 02/16/22 13:10 96 02/16/22 12:40 97 02/16/22 12:30 98 02/16/22 12:20 98 02/16/22 12:05 96 Intake and Output 02/16/22 02/17/22 02/17/22 22:59 06:59 14:59 Intake Total 41.43 41.398 Output Total 100 Balance 41.43 -58.602 Intake: Intake, IV Titration 41.43 41.398 Amount Heparin Sod,Pork in 0.45% 41.43 41.398 NaCl 25,000 unit In 0.45 % NaCl 1 250ml.bag @ 12 UNITS/KG/HR 7.022 mls/hr IV .Q24H [facility] Rx#: [id number] Output: Urine 100 Other: Voiding Method Toilet Toilet # Voids 1 Weight 58.513 kg 68.7 kg Results 02/17/22 07:14 02/17/22 07:14 Cardiac Enzymes 02/16/22 02/16/22 02/16/22 Range/Units 12:26 12:26 15:26 AST 52 H (14-36) U/L Troponin I 0.014 <0.012 (0.000-0.034) ng/mL 02/16/22 Range/Units 17:59 AST (14-36) U/L Troponin I 0.013 (0.000-0.034) ng/mL Coagulation 02/16/22 02/16/22 02/16/22 Range/Units 12:26 14:59 20:45 PT 11.2 11.1 (9.0-12.0) sec APTT 20.7 L 22.7 25.5 (22.0-30.0) sec 02/17/22 Range/Units 00:38 PT (9.0-12.0) sec APTT 47.6 H (22.0-30.0) sec CBC 02/16/22 02/16/22 Range/Units 12:26 14:59 WBC 7.7 7.0 (3.8-10.6) k/uL RBC 3.87 3.82 (3.80-5.40) m/uL Hgb 12.5 12.3 (11.4-16.0) gm/dL Hct 37.0 36.3 (34.0-46.0) % Plt Count 347 310 (150-450) k/uL Comprehensive Metabolic Panel 02/16/22 Range/Units 12:26 Sodium 138 (137-145) mmol/L Potassium 4.2 (3.5-5.1) mmol/L Chloride 108 H (98-107) mmol/L Carbon Dioxide 21 L (22-30) mmol/L BUN 23 H (7-17) mg/dL Creatinine 0.90 (0.52-1.04) mg/dL Glucose 93 (74-99) mg/dL Calcium 8.7 (8.4-10.2) mg/dL AST 52 H (14-36) U/L ALT 62 H (4-34) U/L Alkaline Phosphatase 94 (38-126) U/L Total Protein 6.2 L (6.3-8.2) g/dL Albumin 3.8 (3.5-5.0) g/dL Current Medications Generic Name Dose Route Start Last Admin Trade Name Freq PRN Reason Stop Dose Admin Hydrocodone Bitart/Acetaminophen 1 each 02/16/22 15:10 02/16/22 18:40 Hydrocodone/Apap 5-325mg 1 Each Tab PO 1 each Q4HR PRN Administration Moderate Pain Calcium Carbonate/Glycine 500 mg 02/17/22 09:00 Calcium Carbonate 500 Mg Chewable PO DAILY [facility] Cholecalciferol 50 mcg 02/17/22 09:00 Cholecalciferol 25 Mcg (1000 Iu) Tablet PO DAILY [facility] Docusate Sodium 100 mg 02/16/22 15:10 Docusate 100 Mg Cap PO BID PRN Constipation Furosemide 20 mg 02/16/22 15:15 02/16/22 16:04 Furosemide 10 Mg/Ml 2 Ml Vial IV 20 mg DAILY [facility] Administration Heparin Sodium (Porcine) 0 unit 02/16/22 14:59 02/16/22 22:01 Heparin Sodium 1,000 Un/Ml (10ml Vl) IV 2,900 unit PER PROTOCOL PRN Administration Low PTT Protocol Diltiazem HCl 125 mg/ Sodium 125 mls @ 5 mls/hr 02/16/22 12:15 02/16/22 12:27 Chloride IV 5 mg/hr .Q24H [facility] 5 mls/hr Administration Protocol 5 MG/HR Heparin Sodium/Sodium Chloride 250 mls @ 7.022 mls/hr 02/16/22 15:00 02/17/22 02:35 25,000 unit/ Sodium Chloride IV 15 units/kg/hr .Q24H [facility] 8.777 mls/hr Titration Protocol 12 UNITS/KG/HR Metoprolol Succinate 25 mg 02/16/22 17:30 02/16/22 18:43 Metoprolol Succinate (Er) 25 Mg Tab.Er.24h PO 25 mg DAILY [facility] Administration Naloxone HCl 0.2 mg 02/16/22 15:10 Naloxone 0.4 Mg/Ml 1 Ml Vial IV Q2M PRN Opioid Reversal Ondansetron HCl 4 mg 02/16/22 15:10 Ondansetron 4 Mg/2 Ml Vial IVP Q8HR PRN Nausea And Vomiting Sumatriptan Succinate 50 mg 02/16/22 15:01 Sumatriptan Succinate 50 Mg Tab PO DAILY PRN Migraine Headache Temazepam 15 mg 02/16/22 15:10 Temazepam 15 Mg Cap PO HS PRN Insomnia Intake and Output 02/16/22 02/17/22 02/17/22 22:59 06:59 14:59 Intake Total 41.43 41.398 Output Total 100 Balance 41.43 -58.602 Intake: Intake, IV Titration 41.43 41.398 Amount Heparin Sod,Pork in 0.45% 41.43 41.398 NaCl 25,000 unit In 0.45 % NaCl 1 250ml.bag @ 12 UNITS/KG/HR 7.022 mls/hr IV .Q24H [facility] Rx#: [id number] Output: Urine 100 Other: Voiding Method Toilet Toilet # Voids 1 Weight 58.513 kg 68.7 kg 02/16/22 14:59 02/16/22 12:26
--- NOTE | 2022-02-17 15:01 | P.PN ---
Subjective Progress Note Date: 02/17/22 History of Presenting Illness: Patient is a very pleasant 71-year-old female with a past medical history of chronic migraines. She presented to the emergency department with a chief co mplaint of palpitations. Patient reports these palpitations began 3 days ago while working outside in her yard. Patient reports that she noticed these palpitations worsened with the heat and with exertion, and states that she has been much more fatigued than her baseline normal. She denied having any headache, lightheadedness, dizziness, chest pain, shortness of breath, or experiencing any numbness/tingling/weakness/swelling in her extremities. Patient denies history of cardiac arrhythmias or after being seen by a trench digger. She reports that she follows yearly with her PCP and states up until this point has been in good health with no problems. Patient underwent full evaluation in the emergency department. An EKG was completed revealing atrial fibrillation with RVR to 166 bpm. Chest x-ray revealing borderline heart size with some interstitial and perihilar density correlating for mild CHF with pulmonary vascular congestion. Labs completed. CBC unremarkable. Coags normal findings. CMP revealing mildly elevated AST of 52 and ALT of 62. Troponin negative at 0.014 with repeat troponin of less than 0.012. ProBNP 4520. Patient was admitted under our services with consultation to cardiology for new onset atrial fibrillation with RVR and acute heart failure. Patient monitored overnight. Troponins were trended all negative at 0.014, less than 0.012 and 0.013. She remains in A. fib RVR despite oral metoprolol and Cardizem infusion. Cardiology evaluated and started patient on amiodarone at this time and increased metoprolol dose to 50 mg daily. Plan is for patient to again be monitored overnight, placing her NPO at midnight for possible ablation tomorrow morning. Physical exam: Patient seen and fully evaluated at bedside this morning. She remains in A. fib RVR despite oral metoprolol and Cardizem infusion. Cardiology evaluated and started patient on amiodarone at this time and increased metoprolol dose to 50 mg daily. Plan is for patient to again be monitored overnight, placing her NPO at midnight for possible ablation tomorrow morning. She denies having any chest pain. She reports continued shortness of breath when lying flat, but states otherwise no shortness of breath at rest or with ambulation. She reports palpitations improved but she continues to feel them on and off. Vital signs reviewed and stable. General: Nontoxic, no distress and appears stated age. Derm: Skin warm and dry, normal coloration for ethnicity. Head: Atraumatic, normocephalic and symmetric. Eyes: EOMs intact, no lid lag, and anicteric sclera Mouth: no lip lesions, mucus membranes moist Cardiovascular: Irregularly irregular, rapid rate. no murmur, positive posterior tibial pulses bilaterally, and cap refill < 2 seconds. Scant swelling of bilateral lower extremities. Lungs: Respirations even, regular, and unlabored on room air. Lungs CTA bilaterally, no rhonchi, no rales, no wheezing, and no accessory muscle usage. Abdominal: soft, nontender to palpation, no guarding, no appreciable organomegaly Ext: ROM intact. No gross muscle atrophy, no edema, no contractures Neuro: Speech clear, face symmetrical and CN II-XII grossly intact with no noted focal neuro deficits Psych: Alert and oriented to person, place, time, and situation. Appropriate and pleasant affect. Assessment and Plan of Care: New onset Atrial fibrillation with rapid ventricular rate Acute heart failure, unknown type pending echocardiogram results -Continue anticoagulation with heparin infusion, may transition to oral anticoagulation once okayed by cardiology as tentative plans is for cardiac ablation tomorrow morning. [id number] score 2 for gender and age. -Continue amiodarone infusion. -Metoprolol increased to 50 mg daily. -Cardiology following, started patient on amiodarone infusion and planning for possible cardiac ablation tomorrow morning. -Telemetry monitoring -Cardiac diet, NPO at midnight -Echocardiogram CODE STATUS: Full code DVT prophylaxis: Heparin Discussed with: Patient and RN Anticipated discharge date: Clinical course to determine Anticipated discharge place: Home A total of 35 minutes was spent on the care of this complex patient more than 50% of the time was spent in counseling and care coordination. Andrey Ma NP rendered care for this patient independently, reviewed the findings and plan as documented in the note above. I did not physically speak with or examine the patient on this date. Objective - Vital Signs Vital signs: Vital Signs Temp 98.0 F 02/17/22 04:00 Pulse 100 02/17/22 04:00 Resp 16 02/17/22 04:00 BP 128/85 02/17/22 04:00 Pulse Ox 90 L 02/17/22 04:00 FiO2 Intake & Output 02/16/22 02/17/22 02/17/22 18:59 06:59 18:59 Intake Total 82.828 Output Total 100 Balance -17.172 Weight 58.513 kg 68.7 kg Intake: Intake, IV Titration 82.828 Amount Heparin Sod,Pork in 0.45% 82.828 NaCl 25,000 unit In 0.45 % NaCl 1 250ml.bag @ 12 UNITS/KG/HR 7.022 mls/hr IV .Q24H [facility] Rx#: [id number] Output: Urine 100 Other: Voiding Method Toilet # Voids 1 - Labs CBC & Chem 7: 02/17/22 07:14 02/17/22 07:14 Labs: Abnormal Lab Results - Last 24 Hours (Table) 02/16/22 02/16/22 02/17/22 Range/Units 12:26 12:26 00:38 APTT 20.7 L 47.6 H (22.0-30.0) sec Chloride 108 H (98-107) mmol/L Carbon Dioxide 21 L (22-30) mmol/L BUN 23 H (7-17) mg/dL AST 52 H (14-36) U/L ALT 62 H (4-34) U/L Total Protein 6.2 L (6.3-8.2) g/dL
[2022-02-17] MEDS: HEPARIN SOD,PORK IN 0.45% NACL 25,000 UNIT in 0.45% NACL 1 250ML.BAG IV SCH (16:19)
[2022-02-17] MEDS: AMIODARONE 450 MG in DEXTROSE 5% IN WATER 250 ML IV SCH ×2 (16:19)
[2022-02-18] MEDS: METOPROLOL SUCCINATE (ER) 50 MG TAB.ER.24H PO SCH ×2 (08:07→10:45)
--- NOTE | 2022-02-18 08:20 | P.PN ---
Subjective This is a pleasant 71-year-old female past medical history significant for migraines. She does not follow with a retail reset merchandiser. We have been asked to see in consultation for new onset atrial fibrillation. Patient comes to the ER with shortness of breath and palpitations. She had associated fatigue and lightheadedness. An EKG was completed revealing atrial fibrillation with RVR HR 160s. She was initially started on IV Cardizem and IV heparin. Transitioned to IV amiodarone bolus and drip. Patient seen and examined at bedside, no acute distress. She continues to have symptoms of shortness of breath, states she not feeling well, mild palpitations. Telemetry reviewed patient continues to be in atrial fibrillation with uncontrolled rates. BP is stable. Echo pending PHYSICAL EXAMINATION Vitals Reviewed CONSTITUTIONAL: No apparent distress. HEENT Neck Supple. No JVD. No carotid bruit. CHEST EXAMINATION: Lungs are clear to auscultation. No chest wall tenderness is noted on palpation or with deep breathing. HEART EXAMINATION Irregular tachycardic rate and rhythm. S1, S2 heard. No murmurs, gallops or rub. ABDOMEN: Soft, nontender. Positive bowel sounds. EXTREMITIES: 2+ peripheral pulses, no lower extremity edema and no calf tenderness. NEUROLOGIC EXAMINATION: Patient is awake, alert and oriented x3. ASSESSMENT New onset paroxysmal atrial fibrillation with RVR -[id number] score 2 History of Migraines PLAN Continue IV heparin Continue IV amiodarone Plan for KRISTA cardioversion today with Dr. Tinajero, patient is agreeable. I have discussed the risks, benefits and alternative therapies for the above- mentioned procedure and for both sedation/analgesia, as they pertain to this patient. The patient has indicated understanding and acceptance of the risks and procedures discussed. Questions have been answered appropriately and she is agreeable to move forward with the above-stated procedure. Naheed sent to pharmacy with case management assistance on cost Likely discharge home later today pending KRISTA/Cardioversion results Nurse practitioner note has been reviewed by physician. Signing provider agrees with the documented findings, assessment, and plan of care. Objective - Vital Signs Vital signs: Vital Signs Temp 98.2 F 02/18/22 07:42 Pulse 113 H 02/18/22 07:42 Resp 19 02/18/22 07:42 BP 135/97 02/18/22 07:42 Pulse Ox 94 L 02/18/22 07:42 FiO2 Intake & Output 02/17/22 02/18/22 02/18/22 18:59 06:59 18:59 Intake Total 981.267 77.21 Output Total 120 Balance 981.267 -42.79 Weight 67.3 kg 68.1 kg Intake: Intake, IV Titration 261.267 77.21 Amount Diltiazem 125 mg In 105.333 Sodium Chloride 0.9% 100 ml @ 5 MG/HR 5 mls/hr IV .Q24H [facility] Rx#:[id number] Heparin Sod,Pork in 0.45% 155.934 77.21 NaCl 25,000 unit In 0.45 % NaCl 1 250ml.bag @ 12 UNITS/KG/HR 7.022 mls/hr IV .Q24H [facility] Rx#: [id number] Oral 720 Output: Urine 120 Other: Voiding Method Toilet Toilet - Labs CBC & Chem 7: 02/18/22 08:16 02/18/22 08:16 Labs: Abnormal Lab Results - Last 24 Hours (Table) 02/17/22 02/17/22 02/18/22 Range/Units 07:14 17:53 00:05 APTT 32.5 H 55.2 H (22.0-30.0) sec Chloride 108 H (98-107) mmol/L Carbon Dioxide 19 L (22-30) mmol/L BUN 23 H (7-17) mg/dL 02/18/22 Range/Units 07:19 APTT 40.3 H (22.0-30.0) sec Chloride (98-107) mmol/L Carbon Dioxide (22-30) mmol/L BUN (7-17) mg/dL
[2022-02-18] MEDS ORDERED: SODIUM CHLORIDE 0.9% 1,000 ML IV ONE (09:08)
[2022-02-18 09:16] LABS: Calcium 9.2 mg/dL (8.4-10.2); Potassium 4.1 mmol/L (3.5-5.1)
[2022-02-18] MEDS ORDERED: PROPOFOL 10 MG/ML 20 ML VIAL IV ONE (09:20)
[2022-02-18] MEDS ORDERED: LIDOCAINE 2% INJ 20 MG/ML (2 ML VIAL) ONE (09:20)
[2022-02-18] MEDS ORDERED: BENZOCAINE SPRAY 1 CAN TOPICAL ONE (09:25)
[2022-02-18 09:40] LABS: HCT 40.3 % (34.0-46.0); HGB 13.3 gm/dL (11.4-16.0); Hypochromasia Slight; MCH 31.2 pg (25.0-35.0); MCV 94.6 fL (80.0-100.0); Mean Platelet Volume 8.1; Platelet Count 413 k/uL (150-450); RBC 4.26 m/uL (3.80-5.40); RDW 13.9 % (11.5-15.5)
--- NOTE | 2022-02-18 09:50 | P.TEE ---
Description of Procedure(s): Procedure performed: Transesophageal Echocardiogram with color flow doppler, pulsed wave doppler and continuous wave doppler, cardioversion Moderate conscious sedation: Moderate conscious sedation was supplied by anesthesia, see separate report Complications: none Indications: Symptomatic atrial fibrillation PROCEDURE: After the risks, benefits and alternatives of the above mentioned procedure was explained in detail with the patient, informed consent was obtained. Patient was brought to the lab in a fasting state. Patient was given sedation by anesthesia. The throat was sprayed with Hurricane to anesthetize the throat. A lubricated Omni probe was then introduced into the esophagus and stomach and multiple views were obtained. 2D echo with color flow doppler, pulsed wave doppler and continuous wave doppler was utilized. Agitated saline bubbles were injected to assess for any intra-atrial shunt. The probe was then removed. There was no left atrial appendage thrombus and therefore synchronized cardioversion was performed with 200 J 1 with resultant sinus rhythm. Patient tolerated the procedure well. Patient was transferred to the post procedure area in stable and satisfactory condition. FINDINGS: 1. The aortic valve is I cuspid and function normal without any significant aortic stenosis or aortic insufficiency. 2. The mitral valve appears be normal with moderate to severe central secondary mitral regurgitation. 3. Tricuspid valve is normal with moderate tricuspid regurgitation. 4. The interatrial septum is intact. No evidence of PFO. 5. Left atrial appendage is free of clot. 6. Left ventricular size is normal however left ventricular systolic function severely decreased with global hypokinesis and ejection fraction 25%. 7. Severely dilated left atrium
[2022-02-18] MEDS: CALCIUM CARBONATE 500 MG CHEWABLE PO SCH (10:39)
[2022-02-18] MEDS: CHOLECALCIFEROL 25 MCG (1000 IU) TABLET PO SCH (10:39)
[2022-02-18 10:43] VITALS: PULSE 89
[2022-02-18] MEDS ORDERED: APIXABAN 5 MG TAB PO SCH (11:15)
[2022-02-18] MEDS ORDERED: LOSARTAN 25 MG TAB PO SCH (11:15)
[2022-02-18] MEDS ORDERED: AMIODARONE 200 MG TAB PO SCH (11:15)
--- NOTE | 2022-02-18 11:23 | CA ---
Transthoracic Echo Report Name: Izzy Fang Age: 71 Gender: F : 1950 Exam Date: 02/17/2022 08:31 Exam Location: [place] [facility] Ht (in): 64 Wt (lb): 151 Ordering Physician: Xena Haley MD Attending/Referring Phys: Waiter/Waitress Formal Kaycee Clemens RDCS Procedure CPT: Indications: AFib, HF Cardiac Hx: Technical Quality: Good Contrast 1: N/A Total Dose (mL): Contrast 2: Total Dose (mL): MEASUREMENTS (Male / Female) Normal Values 2D ECHO LV Diastolic Diameter PLAX 4.4 cm 4.2 - 5.9 / 3.9 - 5.3 cm LV Systolic Diameter PLAX 3.8 cm IVS Diastolic Thickness 1.0 cm 0.6 - 1.0 / 0.6 - 0.9 cm LVPW Diastolic Thickness 1.4 cm 0.6 - 1.0 / 0.6 - 0.9 cm LV Relative Wall Thickness 0.6 RV Internal Dim ED PLAX 2.9 cm LA Systolic Diameter LX 5.0 cm 3.0 - 4.0 / 2.7 - 3.8 cm LA Volume 127.0 cm??? 18 - 58 / 22 - 52 cm??? M-MODE Aortic Root Diameter MM 3.2 cm LA Systolic Diameter MM 5.4 cm LA Ao Ratio MM 1.7 AV Cusp Separation MM 1.9 cm DOPPLER TR Peak Velocity 281.3 cm/s TR Peak Gradient 31.6 mmHg Right Ventricular Systolic Press 36.5 mmHg FINDINGS Left Ventricle Mildly impaired FUNCTION was EF between 45-50% Right Ventricle Normal right ventricular size and function. Mild pulmonary hypertension. Right Atrium Normal right atrial size. Left Atrium Severely increased left atrial diameter. Severely increased left atrial volume. Mildly increased left atrial area. Mitral Valve Mitral valve thickened. [id number] mitral regurgitation. Aortic Valve Trileaflet aortic valve. Tricuspid Valve Structurally normal tricuspid valve. Mild tricuspid regurgitation. Pulmonic Valve Structurally normal pulmonic valve. Trace pulmonic regurgitation. Pericardium Small pericardial effusion. Pleural effusion. Aorta Normal size aortic root and proximal ascending aorta. CONCLUSIONS Mildly impaired LV function was EF between 45-50% Moderate to severe mitral regurgitation Previewed by: Dr. Guillaume Browning MD (Electronically Signed) Final Date: 18 February 2022 11:22
[2022-02-18] MEDS: FUROSEMIDE 10 MG/ML 4 ML VIAL IV SCH (11:33)
[2022-02-18] MEDS ORDERED: AMIODARONE 450 MG in DEXTROSE 5% IN WATER 250 ML IV SCH ×2 (12:00)
[2022-02-18] MEDS: AMIODARONE 450 MG in DEXTROSE 5% IN WATER 250 ML IV SCH ×2 (12:36)
[2022-02-18 12:40] VITALS: BP 149/96; RESP 19; TEMP 97.9
--- NOTE | 2022-02-18 13:52 | P.DS ---
Providers Date of admission: 02/16/22 15:03 Expected date of discharge: 02/18/22 Attending physician: Karla Mccarthy DO Consults: 02/16/22 15:00 Consult Physician Routine Consulting Provider: Yaya Tinajero Consult Reason/Comments: A Fib, HF Do you want consulting provider notified?: Yes Primary care physician: Babar Leon [facility] Course: Discharge Diagnosis: New onset Atrial fibrillation with rapid ventricular rate, Patient successfully underwent KRISTA with Cardioversion and is being discharged home on Eliquis, amiodarone, losartan, and metoprolol. Acute systolic heart failure with EF of 45-50%. Hospital Course: Patient is a very pleasant 71-year-old female with a past medical history of chronic migraines. She presented to the emergency department with a chief complaint of palpitations. Patient reports these palpitations began 3 days ago while working outside in her yard. Patient reports that she noticed these palpitations worsened with the heat and with exertion, and states that she has been much more fatigued than her baseline normal. She denied having any headache, lightheadedness, dizziness, chest pain, shortness of breath, or experiencing any numbness/tingling/weakness/swelling in her extremities. Patient denies history of cardiac arrhythmias or after being seen by a campus administrative assistant. She reports that she follows yearly with her PCP and states up until this point has been in good health with no problems. Patient underwent full evaluation in the emergency department. An EKG was completed revealing atrial fibrillation with RVR to 166 bpm. Chest x-ray revealing borderline heart size with some interstitial and perihilar density correlating for mild CHF with pulmonary vascular congestion. Labs completed. CBC unremarkable. Coags normal findings. CMP revealing mildly elevated AST of 52 and ALT of 62. Troponin negative at 0.014 with repeat troponin of less than 0.012. ProBNP 4520. Patient was admitted under our services with consultation to cardiology for new onset atrial fibrillation with RVR and acute heart failure. Patient monitored overnight. Troponins were trended all negative at 0.014, less than 0.012 and 0.013. She remains in A. fib RVR despite oral metoprolol and Cardizem infusion. Cardiology evaluated and started patient on amiodarone at this time and increased metoprolol dose to 50 mg daily. Echocardiogram completed revealing EF of 45-50% with moderate to severe mitral regurgitation. She underwent successful KRISTA/Cardioversion on 02/18/22 and was cleared by cardiology. She was determined stable for discharge by cardio. She was discharged on amio, metoprolol, eliquis, and losartan. She will follow with Dr. Tinajero in [address] Farr in 1- 2 days. Physical exam: Vital signs reviewed and stable. General: Nontoxic, no distress and appears stated age. Derm: Skin warm and dry, normal coloration for ethnicity. Head: Atraumatic, normocephalic and symmetric. Eyes: EOMs intact, no lid lag, and anicteric sclera Mouth: no lip lesions, mucus membranes moist Cardiovascular: Irregularly irregular, rapid rate. no murmur, positive posterior tibial pulses bilaterally, and cap refill < 2 seconds. Scant swelling of bilateral lower extremities. Lungs: Respirations even, regular, and unlabored on room air. Lungs CTA bilaterally, no rhonchi, no rales, no wheezing, and no accessory muscle usage. Abdominal: soft, nontender to palpation, no guarding, no appreciable organomegaly Ext: ROM intact. No gross muscle atrophy, no edema, no contractures Neuro: Speech clear, face symmetrical and CN II-XII grossly intact with no noted focal neuro deficits Psych: Alert and oriented to person, place, time, and situation. Appropriate and pleasant affect. A total of 38 minutes of time were spent preparing this complex discharge summary. Pt was discharged on 02/18/22 at 1:30 PM Andrey Ma NP rendered care for this patient independently, reviewed the findings and plan as documented in the note above. I did not physically speak with or examine the patient on this date. Ammendments in blue Patient Condition at Discharge: Stable Plan - Discharge Summary Discharge Rx Participant: No New Discharge Prescriptions: New Apixaban [Eliquis] 5 mg PO BID #60 tab Amiodarone [Cordarone] 400 mg PO BID #120 tab Losartan [Cozaar] 12.5 mg PO DAILY #60 tab Metoprolol Succinate (ER) [Toprol XL] 50 mg PO DAILY #90 tab Continue SUMAtriptan succinate [Imitrex] 50 mg PO DAILY PRN PRN Reason: Migraine Headache Calcium Carbonate [Calcium] 600 mg PO DAILY Cholecalciferol [Vitamin D3 (25 Mcg = 1000 Iu)] 50 mcg PO DAILY Discharge Medication List SUMAtriptan succinate [Imitrex] 50 mg PO DAILY PRN 07/30/14 [History] Calcium Carbonate [Calcium] 600 mg PO DAILY 06/17/17 [History] Cholecalciferol [Vitamin D3 (25 Mcg = 1000 Iu)] 50 mcg PO DAILY 02/16/22 [History] Apixaban [Eliquis] 5 mg PO BID #60 tab 02/17/22 [Rx] Amiodarone [Cordarone] 400 mg PO BID #120 tab 02/18/22 [Rx] Losartan [Cozaar] 12.5 mg PO DAILY #60 tab 02/18/22 [Rx] Metoprolol Succinate (ER) [Toprol XL] 50 mg PO DAILY #90 tab 02/18/22 [Rx] Follow up Appointment(s)/Referral(s): Yaya Tinajero DO [STAFF PHYSICIAN] - 1 Week (Office will call you to schedule appoitment ) Babar Farr MD [Primary Care Provider] - 02/26/22 11:00 am (Follow up with Rosangela) Patient Instructions/Handouts: Amiodarone (By mouth), Apixaban (By mouth), A- fib (Atrial Fibrillation) (GEN) Activity/Diet/Wound Care/Special Instructions: Activity: As tolerated. Take breaks as needed. Diet: Heart healthy and carb consistent diet. Avoid salts, or foods with hidden salts such as canned or boxed foods and frozen dinners. Extra salt makes your heart work harder and traps the fluid in your body for longer. Special Instructions: Take all of your medications as directed and remember to keep all of your doctor's appointments and follow-up as needed. Please follow up with Dr. Tinajero in the office in 1 week. You are also being discharged home on a blood thinner, Eliquis. This is very important to take daily as directed until otherwise advised by your campus administrative assistant-Dr. Tinajero. Being that you are being placed on a blood thinner it is very important to watch for any signs of bleeding and notify your doctor immediately if you notice any bleeding. It is also important to remove any trip hazards such as rugs or loose extension cords from your home to prevent unnecessary falls and if you do experience a fall or head injury, it is extremely important to be evaluated by a medical provider immediately to ensure no internal bleeding. Taper Instructions for Amiodarone: Take 400mg Twice a day for 1 week starting 02/18 Then take 200mg Twice a day for 1 week starting 02/25 Then take 200mg Daily for 1 week starting 03/03 Further changes as directed by your campus administrative assistant, Dr. Tinajero. Thank you for allowing us to participate in your care, it was truly a pleasure having you for our patient!!! Discharge Disposition: HOME SELF-CARE
== END 2022-02-18 15:21 | disposition home or self-care (01) | DRG 308 ==
LOC: EC 12:04 → 3SCARD 15:03
PROVIDERS: ADMIT Internal Medicine; ATTEND Internal Medicine
PROC: B246ZZ4 Ultrasonography of Right and Left Heart, Transesophageal (ICD-10-PCS; 2022-02-18)
PROC: 5A2204Z Restoration of Cardiac Rhythm, Single (ICD-10-PCS; principal; 2022-02-18 11:20)
DX: I48.0 Paroxysmal atrial fibrillation (principal); I50.21 Acute systolic (congestive) heart failure; G43.909 Migraine, unspecified, not intractable, without status migrainosus; I08.1 Rheumatic disorders of both mitral and tricuspid valves; Z79.01 Long term (current) use of anticoagulants; Z87.891 Personal history of nicotine dependence; Z90.710 Acquired absence of both cervix and uterus
CPT/HCPCS: 36415; 71045; 80048; 80053; 83735; 83880; 84443; 84484; 85025; 85027; 85610; 85730; 92960; 93005; 93306; 93312; 93320; 93325; 96374; 96375; 99291

== ENCOUNTER 2022-03-09 10:44 | Day surgery (SDC) | payer BC, MEDICARE ==
[2022-03-08 09:14] VITALS: BMI 20.5
[~2022-03-09 10:44] MED LIST changes: -DEXAMETHASONE SOD PHOSPHATE 4 MG/ML 1 ML VIAL IV ONE; -HYDROmorphone 0.5 MG/0.5 ML SYRINGE IVP PRN; -LIDOCAINE 1% (10MG/ML) FOR IV START INTRADERMA PRN; -ONDANSETRON 4 MG/2 ML VIAL IVP ONE; -SCOPOLAMINE 1.5MG/72HR PATCH TRANSDERM ONE; +SODIUM CHLORIDE 0.9% 1,000 ML IV SCH
[2022-03-09] MEDS ORDERED: SODIUM CHLORIDE 0.9% 500 ML 500 ML IV ONE (11:18)
[2022-03-09 11:43] VITALS: TEMP 98.5
[2022-03-09] MEDS ORDERED: AMIODARONE 200 MG TAB PO STA (11:49)
[2022-03-09] MEDS ORDERED: LIDOCAINE 2% INJ 20 MG/ML (2 ML VIAL) ONE (12:38)
[2022-03-09] MEDS ORDERED: PROPOFOL 10 MG/ML 20 ML VIAL IV ONE (12:38)
[2022-03-09 13:04] VITALS: RESP 16
[2022-03-09 15:26] VITALS: BP 135/87; PULSE 78
--- NOTE | 2022-03-11 07:45 | P.PCN ---
Description of Procedure: Procedure performed: Synchronized cardioversion Date of procedure: 03/09/2022 Moderate conscious sedation: Moderate conscious sedation was supplied by anesthesia, see separate report Complications: none Indications: Persistent A. fib PROCEDURE: After the risks, benefits and alternatives of the above mentioned procedure was explained in detail with the patient, informed consent was obtained. Patient was brought to the postoperative holding area in a fasting state. Patient was given sedation by anesthesia. Patient had been taking anticoagulation without fail for over 30 days. Synchronized cardioversion was performed with 120 J 1 with resultant sinus rhythm. Patient tolerated the procedure well. Patient was transferred to the post procedure area in stable and satisfactory condition.
== END 2022-03-09 14:45 | disposition home or self-care (01) ==
LOC: CATHCVL 10:44
PROVIDERS: ATTEND Internal Medicine
DX: I48.19 Other persistent atrial fibrillation (principal); I42.9 Cardiomyopathy, unspecified; I10 Essential (primary) hypertension; G43.909 Migraine, unspecified, not intractable, without status migrainosus; Z20.822 Contact with and (suspected) exposure to COVID-19; Z87.891 Personal history of nicotine dependence; Z99.81 Dependence on supplemental oxygen; Z79.899 Other long term (current) drug therapy; Z79.01 Long term (current) use of anticoagulants
CPT/HCPCS: 92960; 87635; J2704; J2001

== ENCOUNTER 2022-03-10 09:21 | Inpatient (IN) | payer MEDICARE, BC ==
[2022-03-10] MEDS ORDERED: IPRATROPIUM-ALBUTEROL 3 ML NEB INHALATION STA (09:25)
[2022-03-10] MEDS ORDERED: MAGNESIUM SULFATE-D5W PMX 2 GM in DEXTROSE/WATER 1 100ML.BAG IVPB STA (09:25)
[2022-03-10] MEDS ORDERED: methylPREDNISolone SOD SUCCI 125 MG/2 ML VIAL IV STA (09:25)
[2022-03-10] MEDS ORDERED: NITROGLYCERIN SL TABS 0.4 MG TAB SUBLINGUAL STA (09:31)
--- NOTE | 2022-03-10 09:35 | ED ---
SOB HPI - General Chief Complaint: Shortness of Breath Stated Complaint: ZACK Time Seen by Provider: 03/10/22 09:21 Source: patient, EMS, RN notes reviewed, old records reviewed Mode of arrival: EMS Limitations: no limitations - History of Present Illness Initial Comments: 71-year-old female history of newly diagnosed A. fib with a cardioversion yesterday who woke up this morning very short of breath and was brought in by EMS. She was very dyspneic she was given a DuoNeb and route to. This seemed to help very much patient denies any history of lung disease. Upon arrival here she started to complain some anterior chest pressure also. 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 She was placed on BiPAP but she Wanted taken off. She demonstrated cyanosis on their evaluation. MD Complaint: shortness of breath - Related Data Home Medications Medication Instructions Recorded Confirmed SUMAtriptan succinate [Imitrex] 50 mg PO BID PRN 07/30/14 03/10/22 Calcium Carbonate [Calcium] 600 mg PO DAILY 06/17/17 03/10/22 Cholecalciferol [Vitamin D3 (25 50 mcg PO DAILY 02/16/22 03/10/22 Mcg = 1000 Iu)] Amiodarone [Cordarone] 200 mg PO DAILY 03/08/22 03/10/22 Amitriptyline HCl [Elavil] 100 mg PO HS 03/08/22 03/10/22 Metoprolol Succinate (ER) [Toprol 100 mg PO DAILY 03/08/22 03/10/22 XL] Previous Rx's Medication Instructions Recorded Apixaban [Eliquis] 5 mg PO BID #60 tab 02/17/22 Losartan [Cozaar] 12.5 mg PO DAILY #60 tab 02/18/22 Allergies Allergy/AdvReac Type Severity Reaction Status Date / Time No Known Allergies Allergy Verified 03/10/22 10:36 Review of Systems ROS Statement: Those systems with pertinent positive or pertinent negative responses have been documented in the HPI. ROS Other: All systems not noted in ROS Statement are negative. Past Medical History Past Medical History: Atrial Fibrillation Additional Past Medical History / Comment(s): hx. migraines, uses oxygen 3.5 L NC PRN, "low blood pressure", SOB, History of Any Multi-Drug Resistant Organisms: None Reported Past Surgical History: Hysterectomy Additional Past Surgical History / Comment(s): COLONOSCOPY, 02/18/22: cardioversion and KRISTA, Past Anesthesia/Blood Transfusion Reactions: No Reported Reaction Past Psychological History: No Psychological Hx Reported Smoking Status: Former smoker - Past Family History Mother Family Medical History: No Reported History General Exam - General Exam Comments Initial Comments: This is a well-developed well-nourished awake alert oriented 4 female demonstrate respiratory distress. Limitations: no limitations General appearance: alert, anxious, in distress Head exam: Present: atraumatic, normocephalic, normal inspection Eye exam: Present: normal appearance, PERRL, EOMI. Absent: scleral icterus, conjunctival injection, periorbital swelling ENT exam: Present: normal exam, mucous membranes moist Neck exam: Present: normal inspection, full ROM, other. Absent: tenderness, meningismus, lymphadenopathy Respiratory exam: Present: respiratory distress, wheezes (Surgery or bruits), accessory muscle use, decreased breath sounds. Absent: rales, rhonchi, stridor Cardiovascular Exam: Present: normal rhythm, tachycardia, normal heart sounds. Absent: systolic murmur, diastolic murmur, rubs, gallop, clicks GI/Abdominal exam: Present: soft, normal bowel sounds. Absent: distended, tenderness, guarding, rebound, rigid Extremities exam: Present: full ROM, normal capillary refill. Absent: tenderness, pedal edema, joint swelling, calf tenderness Back exam: Present: normal inspection Neurological exam: Present: alert, oriented X3, CN II-XII intact Psychiatric exam: Present: anxious Skin exam: Present: dry, intact, cyanosis, other (Clinical touch in the periphery). Absent: rash Course Vital Signs 03/10/22 03/10/22 03/10/22 09:26 09:30 09:31 Temperature 97.5 F L Pulse Rate 117 H Respiratory 34 H Rate Blood Pressure 167/118 O2 Sat by Pulse 91 L Oximetry Fraction of 50 50 Inspired Oxygen (FIO2) 03/10/22 03/10/22 03/10/22 09:33 09:45 09:55 Temperature Pulse Rate 109 H 102 H Respiratory 29 H 27 H Rate Blood Pressure O2 Sat by Pulse Oximetry Fraction of 70 50 Inspired Oxygen (FIO2) 03/10/22 11:35 Temperature Pulse Rate 93 Respiratory 20 Rate Blood Pressure 142/95 O2 Sat by Pulse 95 Oximetry Fraction of Inspired Oxygen (FIO2) - Reevaluation(s) Reevaluation #1: 03/10/22 09:54 Reevaluation the patient states she feels much improved at this time she is on BiPAP but she states her breathing is improved and she feels better. Her saturations have also improved. Her color has improved. Reevaluation #2: 03/10/22 13:39 Repeat evaluation patient feels much improved after Lasix. Blood pressure sores remain somewhat elevated. Medical Decision Making - Lab Data Result diagrams: 03/10/22 09:32 03/10/22 09:32 Lab Results 03/10/22 03/10/22 03/10/22 Range/Units 09:32 09:32 09:32 WBC 7.3 (3.8-10.6) k/uL RBC 3.28 L (3.80-5.40) m/uL Hgb 9.9 L D (11.4-16.0) gm/dL Hct 31.8 L (34.0-46.0) % MCV 97.0 (80.0-100.0) fL MCH 30.3 (25.0-35.0) pg MCHC 31.2 (31.0-37.0) g/dL RDW 14.2 (11.5-15.5) % Plt Count 372 (150-450) k/uL MPV 8.4 Neutrophils % 75 % Lymphocytes % 18 % Monocytes % 5 % Eosinophils % 1 % Basophils % 0 % Neutrophils # 5.5 (1.3-7.7) k/uL Lymphocytes # 1.3 (1.0-4.8) k/uL Monocytes # 0.4 (0-1.0) k/uL Eosinophils # 0.1 (0-0.7) k/uL Basophils # 0.0 (0-0.2) k/uL Hypochromasia Marked PT 20.7 H (9.0-12.0) sec INR 2.1 H (<1.2) APTT 29.2 (22.0-30.0) sec D-Dimer 0.63 H (<0.60) mg/L FEU Sodium 143 (137-145) mmol/L Potassium 2.8 L (3.5-5.1) mmol/L Chloride 110 H (98-107) mmol/L Carbon Dioxide 18 L (22-30) mmol/L Anion Gap 15 mmol/L BUN 13 (7-17) mg/dL Creatinine 0.53 (0.52-1.04) mg/dL Est GFR (CKD-EPI)AfAm >90 (>60 ml/min/1.73 sqM) Est GFR (CKD-EPI)NonAf >90 (>60 ml/min/1.73 sqM) Glucose 184 H (74-99) mg/dL Lactic Ac Sepsis Rflx Plasma Lactic Acid Sawyer (0.7-2.0) mmol/L Calcium 5.9 L* (8.4-10.2) mg/dL Magnesium 1.2 L (1.6-2.3) mg/dL Total Bilirubin 0.2 (0.2-1.3) mg/dL AST 26 (14-36) U/L ALT 30 (4-34) U/L Alkaline Phosphatase 59 (38-126) U/L Troponin I (0.000-0.034) ng/mL NT-Pro-B Natriuret Pep pg/mL Total Protein 4.1 L (6.3-8.2) g/dL Albumin 2.5 L (3.5-5.0) g/dL Coronavirus (PCR) (Not Detectd) 03/10/22 03/10/22 03/10/22 Range/Units 09:32 09:32 09:32 WBC (3.8-10.6) k/uL RBC (3.80-5.40) m/uL Hgb (11.4-16.0) gm/dL Hct (34.0-46.0) % MCV (80.0-100.0) fL MCH (25.0-35.0) pg MCHC (31.0-37.0) g/dL RDW (11.5-15.5) % Plt Count (150-450) k/uL MPV Neutrophils % % Lymphocytes % % Monocytes % % Eosinophils % % Basophils % % Neutrophils # (1.3-7.7) k/uL Lymphocytes # (1.0-4.8) k/uL Monocytes # (0-1.0) k/uL Eosinophils # (0-0.7) k/uL Basophils # (0-0.2) k/uL Hypochromasia PT (9.0-12.0) sec INR (<1.2) APTT (22.0-30.0) sec D-Dimer (<0.60) mg/L FEU Sodium (137-145) mmol/L Potassium (3.5-5.1) mmol/L Chloride (98-107) mmol/L Carbon Dioxide (22-30) mmol/L Anion Gap mmol/L BUN (7-17) mg/dL Creatinine (0.52-1.04) mg/dL Est GFR (CKD-EPI)AfAm (>60 ml/min/1.73 sqM) Est GFR (CKD-EPI)NonAf (>60 ml/min/1.73 sqM) Glucose (74-99) mg/dL Lactic Ac Sepsis Rflx Plasma Lactic Acid Sawyer 2.1 H* (0.7-2.0) mmol/L Calcium (8.4-10.2) mg/dL Magnesium (1.6-2.3) mg/dL Total Bilirubin (0.2-1.3) mg/dL AST (14-36) U/L ALT (4-34) U/L Alkaline Phosphatase (38-126) U/L Troponin I <0.012 (0.000-0.034) ng/mL NT-Pro-B Natriuret Pep 3460 pg/mL Total Protein (6.3-8.2) g/dL Albumin (3.5-5.0) g/dL Coronavirus (PCR) (Not Detectd) 03/10/22 03/10/22 Range/Units 10:05 12:28 WBC (3.8-10.6) k/uL RBC (3.80-5.40) m/uL Hgb (11.4-16.0) gm/dL Hct (34.0-46.0) % MCV (80.0-100.0) fL MCH (25.0-35.0) pg MCHC (31.0-37.0) g/dL RDW (11.5-15.5) % Plt Count (150-450) k/uL MPV Neutrophils % % Lymphocytes % % Monocytes % % Eosinophils % % Basophils % % Neutrophils # (1.3-7.7) k/uL Lymphocytes # (1.0-4.8) k/uL Monocytes # (0-1.0) k/uL Eosinophils # (0-0.7) k/uL Basophils # (0-0.2) k/uL Hypochromasia PT (9.0-12.0) sec INR (<1.2) APTT (22.0-30.0) sec D-Dimer (<0.60) mg/L FEU Sodium (137-145) mmol/L Potassium (3.5-5.1) mmol/L Chloride (98-107) mmol/L Carbon Dioxide (22-30) mmol/L Anion Gap mmol/L BUN (7-17) mg/dL Creatinine (0.52-1.04) mg/dL Est GFR (CKD-EPI)AfAm (>60 ml/min/1.73 sqM) Est GFR (CKD-EPI)NonAf (>60 ml/min/1.73 sqM) Glucose (74-99) mg/dL Lactic Ac Sepsis Rflx Y Plasma Lactic Acid Sawyer (0.7-2.0) mmol/L Calcium (8.4-10.2) mg/dL Magnesium (1.6-2.3) mg/dL Total Bilirubin (0.2-1.3) mg/dL AST (14-36) U/L ALT (4-34) U/L Alkaline Phosphatase (38-126) U/L Troponin I (0.000-0.034) ng/mL NT-Pro-B Natriuret Pep pg/mL Total Protein (6.3-8.2) g/dL Albumin (3.5-5.0) g/dL Coronavirus (PCR) Not Detected (Not Detectd) - EKG Data -: EKG Interpreted by Me EKG shows normal: sinus rhythm EKG Comments: Sinus tachycardia rate 103 NH interval 158 QRS duration 90 QT since QTC 331/411 possible RV conduction delay poor R-wave progression. Critical Care Time Critical Care Time: Yes Total Critical Care Time: 45 Critical Care Time: Critical care time includes initial presentation with history physical labs x- rays discussed with paramedics upon arrival multiple reevaluation patient responsive therapy review of old charting was available discussed with the admitting physician admission orders and documentation of the above Disposition Clinical Impression: Acute pulmonary edema, Acute respiratory distress syndrome in adult, Anemia, Hypokalemia, Hypomagnesemia, Hypocalcemia Disposition: ADMITTED IP TO THIS HOSP Condition: Fair Referrals: None,Stated [Primary Care Provider] - 1-2 days Decision Date: 03/10/22 Decision Time: 13:00
[2022-03-10 09:47] LABS: Basophils % (A) 0 %; Eosinophils # (A) 0.1 k/uL (0-0.7); Eosinophils % (A) 1 %; HCT 31.8 % (34.0-46.0); Hypochromasia Marked; Lymphocytes # (A) 1.3 k/uL (1.0-4.8); Lymphocytes % (A) 18 %; MCH 30.3 pg (25.0-35.0); MCHC 31.2 g/dL (31.0-37.0); Mean Platelet Volume 8.4; Monocytes # (A) 0.4 k/uL (0-1.0); Monocytes % (A) 5 %; Neutrophils # (A) 5.5 k/uL (1.3-7.7); Neutrophils % (A) 75 %; Platelet Count 372 k/uL (150-450); RBC 3.28 m/uL (3.80-5.40); RDW 14.2 % (11.5-15.5); WBC 7.3 k/uL (3.8-10.6)
[2022-03-10 10:08] LABS: HGB 9.9 gm/dL (11.4-16.0)
[2022-03-10 10:24] LABS: INR 2.1 (<1.2); Partial Thromboplastin Time 29.2 sec (22.0-30.0); Prothrombin Time 20.7 sec (9.0-12.0)
[2022-03-10] MEDS ORDERED: FUROSEMIDE 10 MG/ML 4 ML VIAL IV STA (10:27)
[2022-03-10 11:29] LABS: ALT 30 U/L (4-34); AST 26 U/L (14-36); African American GFR (CKD) >90 (>60 ml/min/1.73 sqM); Albumin 2.5 g/dL (3.5-5.0); Alkaline Phosphatase 59 U/L (38-126); Anion Gap 15 mmol/L; Blood Urea Nitrogen 13 mg/dL (7-17); Carbon Dioxide 18 mmol/L (22-30); Chloride 110 mmol/L (98-107); Glucose 184 mg/dL (74-99); Magnesium 1.2 mg/dL (1.6-2.3); Non-African American GFR(CKD) >90 (>60 ml/min/1.73 sqM); Potassium 2.8 mmol/L (3.5-5.1); Sodium 143 mmol/L (137-145); Total Bilirubin 0.2 mg/dL (0.2-1.3); Total Protein 4.1 g/dL (6.3-8.2)
[2022-03-10 11:35] LABS: Calcium 5.9 mg/dL (8.4-10.2)
--- NOTE | 2022-03-10 11:52 | XR ---
EXAMINATION TYPE: XR chest 1V portable DATE OF EXAM: 03/10/2022 COMPARISON: Chest x-ray dated 02/16/2022 HISTORY: Respiratory distress, shortness of breath TECHNIQUE: Single frontal view of the chest is obtained. FINDINGS: The heart is thought to be enlarged but is obscured. Central vascularity and interstitium are increased. There is no evident pneumothorax. There are overlying leads, artifacts. IMPRESSION: Correlate for congestive heart failure, follow-up is recommended.
[2022-03-10] MEDS ORDERED: NALOXONE 0.4 MG/ML 1 ML VIAL IVP PRN (12:53)
[2022-03-10] MEDS ORDERED: SUMAtriptan succinate 50 MG TAB PO PRN (12:54)
--- NOTE | 2022-03-10 13:07 | CT ---
EXAMINATION TYPE: CT angio chest CT DLP: 286 mGycm, Automated exposure control for dose reduction was used. DATE OF EXAM: 03/10/2022 12:58 PM COMPARISON: CT chest 04/07/2020. CLINICAL INDICATION:Female, 71 years old with history of PE suspected; SOB, ZACK, PE suspected TECHNIQUE/CONTRAST: CTA scan of the thorax is performed with IV Contrast, patient injected with 100 mL of Isovue 370, pul monary embolism protocol. MIP images are created and reviewed. FINDINGS: Pulmonary Artery: There is no evidence for a filling defect within the pulmonary vasculature to sugge st acute pulmonary embolism. The pulmonary artery is of normal size. Reflux of contrast into the IVC . Lungs/Pleura: Moderate to large right and small left pleural effusions with associated atelectasis. Complete atelectasis of the right lower lobe. Scattered patchy groundglass demonstrated demonstrated throughout the lungs. Lingular and right middle lobe scarring or atelectasis. Airway: Large airways are patent. Heart: The heart is moderately enlarged for size. No pericardial effusion. Vasculature: No evidence of aortic aneurysm. Mediastinum: No gross evidence of adenopathy. Musculoskeletal: No acute osseous abnormalities Soft Tissues: Unremarkable. Lower neck: No significant findings. Upper Abdomen: Small hiatal hernia. IMPRESSION: 1. No evidence of pulmonary embolism. 2. Cardiomegaly with moderate to large right and small left pleural effusions and patchy bilateral gr oundglass opacities likely representing pulmonary edema. Findings are suggestive acute CHF exacerbati on. Superimposed infectious process is not excluded.
[2022-03-10] MEDS ORDERED: POTASSIUM CHLORIDE 20 MEQ in WATER FOR INJECTION 1 100ML.BAG IVPB STA (13:43)
[2022-03-10] MEDS ORDERED: NITROGLYCERIN OINT 1 INCH/GM PACKET TOPICAL STA (13:43)
--- NOTE | 2022-03-10 14:15 | P.HPIM ---
History of Present Illness H&P Date: 03/10/22 Chief Complaint: Dyspnea 71-year-old woman with medical history of paroxysmal atrial fibrillation, systolic heart failure, chronic migraines presented with dyspnea. She was i nitially seen here earlier this month where she was found to have paroxysmal atrial fibrillation with RVR, at which time she underwent KRISTA with cardioversion was discharged with cardiology follow-up. At that time echocardiogram noted that she had a mildly reduced ejection fraction of 45-50%. She subsequently reverted back into atrial fibrillation and was seen by cardiology yesterday for repeat cardioversion, which again was successful. However, since that time she's had increasing dyspnea on exertion and has significant dyspnea today prompting her to come in by ambulance to the emergency room for further evaluation. All in route she received a DuoNeb and was placed on BiPAP, and was noted by EMS to be cyanotic. After receiving Lasix in the emergency room, her color improved and so did her respiratory distress, and she was successfully take off BiPAP and placed on nonrebreather with good saturation. She denies fevers chills, nausea, vomiting, chest pain, palpitations, syncope, presyncope, cough, abdominal pain, constipation, diarrhea, dysuria, dyschezia, numbness/weakness of extremities. In the emergency room, patient was afebrile, 167/118, pulse rate 117, 98% on nonrebreather. CBC was significant for a drop in hemoglobin count down to 9.9 from a baseline of 13.1 earlier this month. Chemistries are remarkable for potassium of 2.8, chloride of 110, bicarb of 18. Calcium was low at 5.9. LFTs are remarkable for a low total protein and low albumin 4.1, 2.5. BNP was 3460. Troponin was less than 0.012. Coags showed PT of 20.7, INR 2.1. D-dimer was slightly elevated at 0.63. Covid was negative. Chest x-ray showed cardiomegaly with increased pulmonary vascularity as well as bilateral pleural effusions. CTA confirmed these findings and was negative for pulmonary embolism. EKG shows normal sinus rhythm to borderline tachycardic with poor R-wave progression in anterior leads. All Systems reviewed and pertinent positives and negatives noted in HPI, all other symptoms are negative Gen: in no apparent distress, resting comfortably in bed Eyes: PERRL, no scleral injection or icterus HENT: normocephalic, atraumatic, good hearing acuity, moist mucous membranes Neck: no tracheal deviation, full range of motion Resp: good air exchange, breathing comfortably with no accessory muscle use, no tactile fremitus, bilateral crackles in the posterior lung zhao CVS: good distal perfusion x 4, no pitting edema tachycardic, regular, no murmurs, JVD is present GI: soft, NTTP, ND, no hepatosplenomegaly : no suprapubic tenderness, no CVAT, eaton catheter not present MSK: no clubbing, no cyanosis, no noted contractures of extremities Skin: no noted rashes, petechiae; temperature of skin is appropriate Neuro: moving all extremities without signs of weakness, CN II-XII intact Psych: cooperative, euthymic mood, insight and judgment intact Labs and imaging reviewed as above Assessment/plan: Acute exacerbation of systolic heart failure, EF 45-50% -Admit inpatient, telemetry -Cardiology consult -Lasix -Will not repeat echo, this was done recently -Oxygen as needed -Strict ins and outs -Daily weights -PT/OT Acute anemia -Hold home Apixiban -Stool occult blood -Recheck CBC today Hypocalcemia Hypokalemia -Replete as needed -Check ionized calcium -Recheck BMP today Paroxysmal atrial fibrillation, rate controlled, currently in sinus rhythm Chronic migraines -Home medications reviewed and reconciled -Hold home anticoagulation until bleeding is ruled out Patient is full code DVT prophylaxis on hold due to suspicion of bleed Past Medical History Past Medical History: Atrial Fibrillation Additional Past Medical History / Comment(s): hx. migraines, uses oxygen 3.5 L NC PRN, "low blood pressure", SOB, History of Any Multi-Drug Resistant Organisms: None Reported Past Surgical History: Hysterectomy Additional Past Surgical History / Comment(s): COLONOSCOPY, 02/18/22: cardioversion and KRISTA, Past Anesthesia/Blood Transfusion Reactions: No Reported Reaction Past Psychological History: No Psychological Hx Reported Smoking Status: Former smoker - Past Family History Mother Family Medical History: No Reported History Medications and Allergies Home Medications Medication Instructions Recorded Confirmed Type SUMAtriptan succinate [Imitrex] 50 mg PO BID PRN 07/30/14 03/10/22 History Calcium Carbonate [Calcium] 600 mg PO DAILY 06/17/17 03/10/22 History Cholecalciferol [Vitamin D3 (25 50 mcg PO DAILY 02/16/22 03/10/22 History Mcg = 1000 Iu)] Apixaban [Eliquis] 5 mg PO BID #60 tab 02/17/22 03/10/22 Rx Losartan [Cozaar] 12.5 mg PO DAILY #60 tab 02/18/22 03/10/22 Rx Amiodarone [Cordarone] 200 mg PO DAILY 03/08/22 03/10/22 History Amitriptyline HCl [Elavil] 100 mg PO HS 03/08/22 03/10/22 History Metoprolol Succinate (ER) [Toprol 100 mg PO DAILY 03/08/22 03/10/22 History XL] Allergies Allergy/AdvReac Type Severity Reaction Status Date / Time No Known Allergies Allergy Verified 03/10/22 10:36 Physical Exam Osteopathic Statement: *. No significant issues noted on an osteopathic structural exam other than those noted in the History and Physical/Consult. Vitals: Vital Signs Temp Pulse Resp BP Pulse Ox FiO2 03/10/22 11:35 93 20 142/95 95 03/10/22 09:55 50 03/10/22 09:45 102 H 27 H 70 03/10/22 09:33 109 H 29 H 03/10/22 09:31 50 03/10/22 09:30 50 03/10/22 09:26 97.5 F L 117 H 34 H 167/118 91 L Intake and Output 03/09/22 03/10/22 03/10/22 22:59 06:59 14:59 Other: Weight 56.699 kg Results CBC & Chem 7: 03/10/22 09:32 03/10/22 09:32 Labs: Abnormal Lab Results - Last 24 Hours (Table) 03/10/22 03/10/22 03/10/22 Range/Units 09:32 09:32 09:32 RBC 3.28 L (3.80-5.40) m/uL Hgb 9.9 L D (11.4-16.0) gm/dL Hct 31.8 L (34.0-46.0) % PT 20.7 H (9.0-12.0) sec INR 2.1 H (<1.2) D-Dimer 0.63 H (<0.60) mg/L FEU Potassium 2.8 L (3.5-5.1) mmol/L Chloride 110 H (98-107) mmol/L Carbon Dioxide 18 L (22-30) mmol/L Glucose 184 H (74-99) mg/dL Plasma Lactic Acid Sawyer (0.7-2.0) mmol/L Calcium 5.9 L* (8.4-10.2) mg/dL Magnesium 1.2 L (1.6-2.3) mg/dL Total Protein 4.1 L (6.3-8.2) g/dL Albumin 2.5 L (3.5-5.0) g/dL 03/10/22 Range/Units 09:32 RBC (3.80-5.40) m/uL Hgb (11.4-16.0) gm/dL Hct (34.0-46.0) % PT (9.0-12.0) sec INR (<1.2) D-Dimer (<0.60) mg/L FEU Potassium (3.5-5.1) mmol/L Chloride (98-107) mmol/L Carbon Dioxide (22-30) mmol/L Glucose (74-99) mg/dL Plasma Lactic Acid Sawyer 2.1 H* (0.7-2.0) mmol/L Calcium (8.4-10.2) mg/dL Magnesium (1.6-2.3) mg/dL Total Protein (6.3-8.2) g/dL Albumin (3.5-5.0) g/dL
[2022-03-10] MEDS: MAGNESIUM SULFATE-D5W PMX 1 GM in DEXTROSE/WATER 1 100ML.BAG IVPB SCH ×2 (14:56→14:57)
[2022-03-10 15:41] LABS: Calcium 9.6 mg/dL (8.4-10.2); Potassium 4.5 mmol/L (3.5-5.1)
[2022-03-10 16:03] LABS: Basophils % (A) 0 %; Eosinophils % (A) 0 %; HCT 41.6 % (34.0-46.0); Hypochromasia Slight; Lymphocytes # (A) 0.4 k/uL (1.0-4.8); Lymphocytes % (A) 5 %; MCHC 31.8 g/dL (31.0-37.0); MCV 94.3 fL (80.0-100.0); Monocytes # (A) 0.1 k/uL (0-1.0); Monocytes % (A) 2 %; Neutrophils % (A) 92 %; Platelet Count 333 k/uL (150-450); RBC 4.41 m/uL (3.80-5.40); RDW 14.2 % (11.5-15.5); WBC 7.6 k/uL (3.8-10.6)
[2022-03-10 16:28] LABS: HGB 13.2 gm/dL (11.4-16.0)
[2022-03-10 17:20] LABS: African American GFR (CKD) >90 (>60 ml/min/1.73 sqM); Anion Gap 9 mmol/L; Blood Urea Nitrogen 16 mg/dL (7-17); Calcium 9.2 mg/dL (8.4-10.2); Carbon Dioxide 28 mmol/L (22-30); Chloride 101 mmol/L (98-107); Glucose 114 mg/dL (74-99); Non-African American GFR(CKD) 87 (>60 ml/min/1.73 sqM); Potassium 4.4 mmol/L (3.5-5.1); Sodium 138 mmol/L (137-145)
[2022-03-10] MEDS: DOCUSATE 100 MG CAP PO SCH (17:42)
[2022-03-10] MEDS: APIXABAN 5 MG TAB PO SCH (20:21)
[2022-03-10] MEDS: AMITRIPTYLINE HCL 50 MG TAB PO SCH (20:23)
[2022-03-10] MEDS ORDERED: APIXABAN 5 MG TAB PO SCH (21:00)
[2022-03-11 06:44] LABS: Basophils % (A) 0 %; Eosinophils % (A) 0 %; HCT 39.6 % (34.0-46.0); HGB 12.5 gm/dL (11.4-16.0); Hypochromasia Slight; Lymphocytes # (A) 1.1 k/uL (1.0-4.8); Lymphocytes % (A) 13 %; MCH 29.6 pg (25.0-35.0); MCHC 31.5 g/dL (31.0-37.0); Mean Platelet Volume 8.2; Monocytes # (A) 0.6 k/uL (0-1.0); Monocytes % (A) 6 %; Neutrophils # (A) 7.1 k/uL (1.3-7.7); Neutrophils % (A) 80 %; Platelet Count 351 k/uL (150-450); RBC 4.22 m/uL (3.80-5.40); RDW 14.2 % (11.5-15.5)
[2022-03-11 06:55] LABS: Calcium 8.7 mg/dL (8.4-10.2); Magnesium 2.2 mg/dL (1.6-2.3); Potassium 4.6 mmol/L (3.5-5.1)
[2022-03-11] MEDS: METOPROLOL SUCCINATE (ER) 100 MG TAB.ER.24H PO SCH (07:18)
[2022-03-11] MEDS: CALCIUM CARBONATE 500 MG CHEWABLE PO SCH (07:18)
[2022-03-11] MEDS: DOCUSATE 100 MG CAP PO SCH (07:18)
[2022-03-11] MEDS: APIXABAN 5 MG TAB PO SCH ×2 (07:18→20:52)
[2022-03-11] MEDS: LOSARTAN 25 MG TAB PO SCH (07:18)
[2022-03-11] MEDS: CHOLECALCIFEROL 25 MCG (1000 IU) TABLET PO SCH (07:19)
[2022-03-11] MEDS: AMIODARONE 200 MG TAB PO SCH (07:19)
[2022-03-11] MEDS: FUROSEMIDE 10 MG/ML 2 ML VIAL IV SCH ×2 (08:55→20:52)
--- NOTE | 2022-03-11 09:51 | P.CRDCN ---
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 She follows with Dr. Tinajero. We have been asked to see in consultation for atrial fibrillation. Patient comes to the ER with complaints of shortness of breath. Patient is legally was hospitalized for atrial fibrillation with rapid ventricular response on 02/16/2022, patient was loaded with amiodarone and then underwent KRISTA cardioversion with Dr. Tinajero on 02/18/2022. She was stabilized and discharged. She followed up in the office recently and was noted to be in atrial fibrillation and was symptomatic with increased shortness of breath. Patient underwent successful cardioversion on 03/09/2022. She presents emergency department with worsening shortness of breath, bilateral lower extremity edema. She initially received IV Lasix 40 mg Once. She endorses significant improvement in her symptoms. Her lower extremity edema has improved. She remained in sinus rhythm. DIAGNOSTICS * EKG reveals sinus tachycardia, heart rate 103, no significant ST S2 abnormalities. * Telemetry tracings indicate sinus rhythm heart rate 6070s * CT chest revealed no evidence of pulmonary embolism, cardiomegaly monitor large right and small left pleural effusions, patchy bilateral, glass opacities. * Chest xray cardiomegaly with pulmonary vascular congestion * Laboratory reviewed, CBC unremarkable, troponin negative, WBC 3004 and 60, sodium 137, potassium 4.6, BUN 18, serum creatinine 0.7, magnesium 2.2 * Current home medications include losartan 12.5 mg daily, Eliquis 5 mg twice a day, amiodarone 200 mg daily, metoprolol succinate 100 mg daily * 2D echo EF 45-45% * KRISTA: * The aortic valve is I cuspid and function normal without any significant aortic stenosis or aortic insufficiency. * The mitral valve appears be normal with moderate to severe central secondary mitral regurgitation. * Tricuspid valve is normal with moderate tricuspid regurgitation. * The interatrial septum is intact. No evidence of PFO. * Left atrial appendage is free of clot. * Left ventricular size is normal however left ventricular systolic function severely decreased with global hypokinesis and ejection fraction 25%. * Severely dilated left atrium REVIEW OF SYSTEMS At the time of my exam: CONSTITUTIONAL: Denies fever or chills. CARDIOVASCULAR: Denies chest pain, Reports shortness of breath, reports LEedema Denies orthopnea, PND. Reports palpitations. RESPIRATORY: Denies cough. GASTROINTESTINAL: Denies abdominal pain, diarrhea, constipation, nausea or vomiting. MUSCULOSKELETAL: Denies myalgias. NEUROLOGIC: Denies numbness, tingling, headacbe or weakness. ENDOCRINE: Denies fatigue, weight change, polydipsia or polyurina. GENITOURINARY: Denies burning, hematuria or urgency with micturation. HEMATOLOGIC: Denies history of anemia or bleeding. PHYSICAL EXAMINATION Vitals Reviewed CONSTITUTIONAL: No apparent distress. HEENT: Head is normocephalic. Pupils are equal, round. Sclerae anicteric. Mucous membranes of the mouth are moist. No JVD. No carotid bruit. CHEST EXAMINATION: Lungs are clear to auscultation. No chest wall tenderness is noted on palpation or with deep breathing. HEART EXAMINATION Regular rate and rhythm. S1, S2 heard. No murmurs, gallops or rub. ABDOMEN: Soft, nontender. Positive bowel sounds. EXTREMITIES: 2+ peripheral pulses, no lower extremity edema and no calf tenderness. SKIN: warm, dry NEUROLOGIC EXAMINATION: Patient is awake, alert and oriented x3. ASSESSMENT Persistent atrial fibrillation Status post Cardioversion on 03/09/2022 -[id number] score 2 Acute on chronic heart failure with reduced ejection fraction, KRISTA EF 25% 02/18/2022 Cardiomyopathy, likely non-ischemic tachy-cardia induced. cannot rule out ischemia History of Migraines PLAN IV Lasix 20mg BID for additional 24 hours likely transition to PO tomorrow Continue metoprolol succinate, losartan, amiodarone Continue anticoagulation with Eliquis Monitor renal function and electrolytes Monitor I/Os Continue monitoring on telemetry. Hopefully discharge in the next 24 hours Further recommendations based on clinical course Follow up outpatient with Dr. Tinajero Nurse practitioner note has been reviewed by physician. Signing provider agrees with the documented findings, assessment, and plan of care. Past Medical History Past Medical History: Atrial Fibrillation Additional Past Medical History / Comment(s): History of migraines, uses oxygen 2-4 L NC PRN, "low blood pressure", SOB, recent admission at the beginning of February for shortness of breath. History of Any Multi-Drug Resistant Organisms: None Reported Past Surgical History: Hysterectomy Additional Past Surgical History / Comment(s): Colonoscopy 5 years ago, cardioversion 03/09/22. Past Anesthesia/Blood Transfusion Reactions: No Reported Reaction Past Psychological History: No Psychological Hx Reported Smoking Status: Former smoker Past Alcohol Use History: Occasional Past Drug Use History: None Reported - Past Family History Mother Family Medical History: No Reported History Additional Family Medical History / Comment(s): Passed of old age at 84. Father Family Medical History: No Reported History Additional Family Medical History / Comment(s): Passed of old age at 92. Medications and Allergies Home Medications Medication Instructions Recorded Confirmed Type SUMAtriptan succinate [Imitrex] 50 mg PO BID PRN 07/30/14 03/10/22 History Calcium Carbonate [Calcium] 600 mg PO DAILY 06/17/17 03/10/22 History Cholecalciferol [Vitamin D3 (25 50 mcg PO DAILY 02/16/22 03/10/22 History Mcg = 1000 Iu)] Apixaban [Eliquis] 5 mg PO BID #60 tab 02/17/22 03/10/22 Rx Losartan [Cozaar] 12.5 mg PO DAILY #60 tab 02/18/22 03/10/22 Rx Amiodarone [Cordarone] 200 mg PO DAILY 03/08/22 03/10/22 History Amitriptyline HCl [Elavil] 100 mg PO HS 03/08/22 03/10/22 History Metoprolol Succinate (ER) [Toprol 100 mg PO DAILY 03/08/22 03/10/22 History XL] Allergies Allergy/AdvReac Type Severity Reaction Status Date / Time No Known Allergies Allergy Verified 03/10/22 10:36 Physical Exam Vitals: Vital Signs Temp Pulse Pulse Resp BP BP Pulse Ox 03/11/22 03:20 73 18 108/68 96 03/10/22 23:20 97.9 F 82 17 117/71 94 L 03/10/22 20:15 97.6 F 83 18 144/88 96 03/10/22 20:06 96 03/10/22 17:29 86 03/10/22 17:03 97.6 F 86 20 168/99 97 03/10/22 17:01 03/10/22 16:24 98.2 F 85 18 143/80 96 03/10/22 15:36 84 16 138/101 03/10/22 11:35 93 20 142/95 95 03/10/22 09:55 03/10/22 09:45 102 H 27 H 03/10/22 09:33 109 H 29 H 03/10/22 09:31 03/10/22 09:30 03/10/22 09:26 97.5 F L 117 H 34 H 167/118 91 L FiO2 03/11/22 03:20 03/10/22 23:20 03/10/22 20:15 03/10/22 20:06 03/10/22 17:29 03/10/22 17:03 03/10/22 17:01 50 03/10/22 16:24 03/10/22 15:36 03/10/22 11:35 03/10/22 09:55 50 03/10/22 09:45 70 03/10/22 09:33 03/10/22 09:31 50 03/10/22 09:30 50 03/10/22 09:26 Intake and Output 03/10/22 03/11/22 03/11/22 22:59 06:59 14:59 Other: Voiding Method Toilet Toilet # Voids 1 3 Weight 56.699 kg Results 03/11/22 05:47 03/11/22 05:47 Cardiac Enzymes 03/10/22 03/10/22 Range/Units 09:32 09:32 AST 26 (14-36) U/L Troponin I <0.012 (0.000-0.034) ng/mL Coagulation 03/10/22 Range/Units 09:32 PT 20.7 H (9.0-12.0) sec APTT 29.2 (22.0-30.0) sec CBC 03/10/22 03/10/22 03/11/22 Range/Units 09:32 15:49 05:47 WBC 7.3 7.6 9.0 (3.8-10.6) k/uL RBC 3.28 L 4.41 4.22 (3.80-5.40) m/uL Hgb 9.9 L D 13.2 D 12.5 (11.4-16.0) gm/dL Hct 31.8 L 41.6 39.6 (34.0-46.0) % Plt Count 372 333 351 (150-450) k/uL Comprehensive Metabolic Panel 03/10/22 03/10/22 03/10/22 Range/Units 09:32 15:24 16:03 Sodium 143 140 138 (137-145) mmol/L Potassium 2.8 L 4.5 4.4 (3.5-5.1) mmol/L Chloride 110 H 101 101 (98-107) mmol/L Carbon Dioxide 18 L 30 28 (22-30) mmol/L BUN 13 17 16 (7-17) mg/dL Creatinine 0.53 0.78 0.71 (0.52-1.04) mg/dL Glucose 184 H 108 H 114 H (74-99) mg/dL Calcium 5.9 L* 9.6 9.2 (8.4-10.2) mg/dL AST 26 (14-36) U/L ALT 30 (4-34) U/L Alkaline Phosphatase 59 (38-126) U/L Total Protein 4.1 L (6.3-8.2) g/dL Albumin 2.5 L (3.5-5.0) g/dL 03/11/22 Range/Units 05:47 Sodium 137 (137-145) mmol/L Potassium 4.6 (3.5-5.1) mmol/L Chloride 103 (98-107) mmol/L Carbon Dioxide 29 (22-30) mmol/L BUN 18 H (7-17) mg/dL Creatinine 0.79 (0.52-1.04) mg/dL Glucose 99 (74-99) mg/dL Calcium 8.7 (8.4-10.2) mg/dL AST (14-36) U/L ALT (4-34) U/L Alkaline Phosphatase (38-126) U/L Total Protein (6.3-8.2) g/dL Albumin (3.5-5.0) g/dL Current Medications Generic Name Dose Route Start Last Admin Trade Name Freq PRN Reason Stop Dose Admin Amiodarone HCl 200 mg 03/11/22 09:00 03/11/22 07:19 Amiodarone 200 Mg Tab PO 200 mg DAILY LORETTA Administration Amitriptyline HCl 100 mg 03/10/22 21:00 03/10/22 20:23 Amitriptyline Hcl 50 Mg Tab PO 100 mg HS LORETTA Administration Apixaban 5 mg 03/10/22 21:00 03/11/22 07:18 Apixaban 5 Mg Tab PO 5 mg BID LORETTA Administration Protocol Calcium Carbonate/Glycine 500 mg 03/11/22 09:00 03/11/22 07:18 Calcium Carbonate 500 Mg Chewable PO 500 mg DAILY LORETTA Administration Cholecalciferol 50 mcg 03/11/22 09:00 03/11/22 07:19 Cholecalciferol 25 Mcg (1000 Iu) Tablet PO 50 mcg DAILY LORETTA Administration Docusate Sodium 100 mg 03/10/22 17:45 03/11/22 07:18 Docusate 100 Mg Cap PO 100 mg DAILY LORETTA Administration Losartan Potassium 12.5 mg 03/11/22 09:00 03/11/22 07:18 Losartan 25 Mg Tab PO 12.5 mg DAILY LORETTA Administration Metoprolol Succinate 100 mg 03/11/22 09:00 03/11/22 07:18 Metoprolol Succinate (Er) 100 Mg Tab.Er.24h PO 100 mg DAILY LORETTA Administration Naloxone HCl 0.2 mg 03/10/22 12:53 Naloxone 0.4 Mg/Ml 1 Ml Vial IVP Q2M PRN Opioid Reversal Sumatriptan Succinate 50 mg 03/10/22 12:54 03/10/22 15:35 Sumatriptan Succinate 50 Mg Tab PO 50 mg BID PRN Administration Migraine Headache Intake and Output 03/10/22 03/11/22 03/11/22 22:59 06:59 14:59 Other: Voiding Method Toilet Toilet # Voids 1 3 Weight 56.699 kg 03/11/22 05:47 03/11/22 05:47
[2022-03-11 11:26] VITALS: BMI 21.4
--- NOTE | 2022-03-11 12:58 | P.PN ---
Subjective Progress Note Date: 03/11/22 Patient states that her breathing is significantly better since she came in. She states that she is able to breathe better. She says that after one dose of IV Lasix she has urinated multiple times. Patient states that at home she wears oxygen as needed. 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 Psych - Calm and cooperative - Labs CBC & Chem 7: 03/11/22 05:47 03/11/22 05:47 Labs: Abnormal Lab Results - Last 24 Hours (Table) 03/10/22 03/10/22 03/10/22 Range/Units 15:24 15:49 16:03 Lymphocytes # 0.4 L (1.0-4.8) k/uL BUN (7-17) mg/dL Glucose 108 H (74-99) mg/dL Plasma Lactic Acid Sawyer 2.3 H* (0.7-2.0) mmol/L 03/10/22 03/11/22 Range/Units 16:03 05:47 Lymphocytes # (1.0-4.8) k/uL BUN 18 H (7-17) mg/dL Glucose 114 H (74-99) mg/dL Plasma Lactic Acid Sawyer (0.7-2.0) mmol/L Assessment and Plan Assessment: #Acute on chronic systolic heart failure with an EF of 25% (KRISTA on 02/18/2022 showed EF of 25%) -Resume IV Lasix 20 mg twice a day -Per cardiology will likely switch to oral diuretics tomorrow -Continue metoprolol succinate, losartan -Patient currently on 4 L nasal cannula and is satting well. Wean O2 as tole rated Persistent atrial fibrillation -Heart rate control -Resume Eliquis and metoprolol and amiodarone History of migraines -Stable -Hx when necessary Anticipated patient be ready for discharge in the next 24 hours
[2022-03-11] MEDS: AMITRIPTYLINE HCL 50 MG TAB PO SCH (20:52)
[2022-03-12 06:48] LABS: Calcium 8.4 mg/dL (8.4-10.2); Magnesium 1.8 mg/dL (1.6-2.3); Potassium 4.3 mmol/L (3.5-5.1)
[2022-03-12] MEDS: CALCIUM CARBONATE 500 MG CHEWABLE PO SCH (10:13)
[2022-03-12] MEDS: AMIODARONE 200 MG TAB PO SCH (10:19)
--- NOTE | 2022-03-12 10:19 | P.PN ---
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 She follows with Dr. Tinajero. We have been asked to see in consultation for atrial fibrillation. Patient comes to the ER with complaints of shortness of breath. Patient is legally was hospitalized for atrial fibrillation with rapid ventricular response on 02/16/2022, patient was loaded with amiodarone and then underwent KRISTA cardioversion with Dr. Tinajero on 02/18/2022. She was stabilized and discharged. She followed up in the office recently and was noted to be in atrial fibrillation and was symptomatic with increased shortness of breath. Patient underwent successful cardioversion on 03/09/2022. She presents emergency department with worsening shortness of breath, bilateral lower extremity edema. She initially received IV Lasix 40 mg Once. She endorses significant improvement in her symptoms. Her lower extremity edema has improved. She remained in sinus rhythm. 03/12/2022 Patient seen and examined at bedside, no acute distress. She denies shortness of breath or chest pain. Her lower extremity edema has resolved. She is currently maintained on IV Lasix 20 mg twice a day. Patient with 1.3 L urine output the past 24 hours. He is maintaining sinus mechanism. Sodium 137, potassium 4.3, BUN 31, serum creatinine 1.15, magnesium 1.8 PHYSICAL EXAMINATION Vitals Reviewed CONSTITUTIONAL: No apparent distress. HEENT: Head is normocephalic. Neck Supple. No JVD. CHEST EXAMINATION: Lungs are clear to auscultation. No chest wall tenderness is noted on palpation or with deep breathing. HEART EXAMINATION Regular rate and rhythm. S1, S2 heard. No murmurs, gallops or rub. ABDOMEN: Soft, nontender. Positive bowel sounds. EXTREMITIES: 2+ peripheral pulses, no lower extremity edema and no calf tenderness. SKIN: warm, dry NEUROLOGIC EXAMINATION: Patient is awake, alert and oriented x3. ASSESSMENT Persistent atrial fibrillation Status post Cardioversion on 03/09/2022 -[id number] score 2 Acute on chronic heart failure with reduced ejection fraction, KRISTA EF 25% 02/18/2022 Cardiomyopathy, likely non-ischemic tachy-cardia induced. cannot rule out ischemia History of Migraines PLAN From a cardiology perspective, patient is stable to be discharged home. Transition to PO Lasix 20mg daily Continue metoprolol succinate, losartan, amiodarone Continue anticoagulation with Eliquis Follow up outpatient with Dr. Tinajero as scheduled. Nurse practitioner note has been reviewed by physician. Signing provider agrees with the documented findings, assessment, and plan of care. Objective - Vital Signs Vital signs: Vital Signs Temp 97.3 F L 03/12/22 04:00 Pulse 64 03/12/22 04:00 Resp 20 03/12/22 04:00 BP 103/67 03/12/22 04:00 Pulse Ox 96 03/12/22 04:00 FiO2 50 03/10/22 17:01 Intake & Output 03/11/22 03/12/22 03/12/22 18:59 06:59 18:59 Intake Total 458 Output Total 400 950 Balance 58 -950 Weight 56.699 kg 67 kg Intake: Oral 458 Output: Urine 400 950 Other: Voiding Method Toilet Toilet # Voids 1 - Labs CBC & Chem 7: 03/11/22 05:47 03/12/22 05:22 Labs: Abnormal Lab Results - Last 24 Hours (Table) 03/12/22 Range/Units 05:22 BUN 31 H (7-17) mg/dL Creatinine 1.15 H (0.52-1.04) mg/dL
[2022-03-12] MEDS: DOCUSATE 100 MG CAP PO SCH (10:20)
[2022-03-12] MEDS: METOPROLOL SUCCINATE (ER) 100 MG TAB.ER.24H PO SCH (10:20)
[2022-03-12] MEDS: APIXABAN 5 MG TAB PO SCH (10:20)
[2022-03-12] MEDS: LOSARTAN 25 MG TAB PO SCH (10:20)
[2022-03-12] MEDS: CHOLECALCIFEROL 25 MCG (1000 IU) TABLET PO SCH (10:20)
[2022-03-12 11:00] VITALS: PULSE 74; RESP 18; TEMP 97.6
--- NOTE | 2022-03-12 11:05 | P.DS ---
Providers Date of admission: 03/10/22 12:56 Attending physician: Xena Haley MD Consults: 03/10/22 12:53 Consult Physician Routine Consulting Provider: [facility] Consult Reason/Comments: Afib with RVR Do you want consulting provider notified?: Yes Primary care physician: Stated None Hospital Course: Discharge Diagnosis: Acute on chronic systolic heart failure with an EF of 25% (KRISTA on 02/18/2022 showed EF of 25%) Persistent atrial fibrillation History of migraines Chronic hypoxia on home O2 as needed Hospital Course: This is a pleasant 71-year-old female past medical history significant for chronic hypoxia on oxygen as needed, persistent atrial fibrillation with RVR s/p cardioversion on 02/18/2022 and on 03/09/2022, 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 Tinajero on 02/18/2022. She was stabilized and discharged. She followed up with cardiology recently and was noted to be in atrial fibrillation and was symptomatic with increased shortness of breath. Patient underwent successful cardioversion on 03/09/2022. She presents emergency department with worsening shortness of breath, bilateral lower extremity edema. She initially received IV Lasix 40 mg Once. She endorses significant improvement in her symptoms. Her lower extremity edema has improved. She remained in sinus rhythm. Patient was then referred for admission. Patient was diuresed aggressively for 2 days. At the time of discharge patient reported she was back to baseline and wanted to go home. Patient was seen by cardiology and deemed stable for discharge. Cardiology resumed her home dose of Lasix 20 mg daily. 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 Patient Condition at Discharge: Fair Plan - Discharge Summary Discharge Rx Participant: No New Discharge Prescriptions: New Furosemide [Lasix] 20 mg PO DAILY #30 tab Continue SUMAtriptan succinate [Imitrex] 50 mg PO BID PRN PRN Reason: Migraine Headache Calcium Carbonate [Calcium] 600 mg PO DAILY Cholecalciferol [Vitamin D3 (25 Mcg = 1000 Iu)] 50 mcg PO DAILY Apixaban [Eliquis] 5 mg PO BID #60 tab Losartan [Cozaar] 12.5 mg PO DAILY #60 tab Amitriptyline HCl [Elavil] 100 mg PO HS Metoprolol Succinate (ER) [Toprol XL] 100 mg PO DAILY Amiodarone [Cordarone] 200 mg PO DAILY Discharge Medication List SUMAtriptan succinate [Imitrex] 50 mg PO BID PRN 07/30/14 [History] Calcium Carbonate [Calcium] 600 mg PO DAILY 06/17/17 [History] Cholecalciferol [Vitamin D3 (25 Mcg = 1000 Iu)] 50 mcg PO DAILY 02/16/22 [History] Apixaban [Eliquis] 5 mg PO BID #60 tab 02/17/22 [Rx] Losartan [Cozaar] 12.5 mg PO DAILY #60 tab 02/18/22 [Rx] Amiodarone [Cordarone] 200 mg PO DAILY 03/08/22 [History] Amitriptyline HCl [Elavil] 100 mg PO HS 03/08/22 [History] Metoprolol Succinate (ER) [Toprol XL] 100 mg PO DAILY 03/08/22 [History] Furosemide [Lasix] 20 mg PO DAILY #30 tab 03/12/22 [Rx] Follow up Appointment(s)/Referral(s): Yaya Tinajero DO [STAFF PHYSICIAN] - 1 Week None,Stated [Primary Care Provider] - 1-2 days Discharge Disposition: HOME SELF-CARE
[2022-03-12 13:07] VITALS: BP 102/69
[2022-03-13] MEDS ORDERED: FUROSEMIDE 20 MG TAB PO SCH (09:00)
== END 2022-03-12 14:29 | disposition home or self-care (01) | DRG 291 ==
LOC: EC 09:21 → 3SCARD 12:56
PROVIDERS: ADMIT Internal Medicine; ATTEND Internal Medicine
DX: I50.23 Acute on chronic systolic (congestive) heart failure (principal); J80 Acute respiratory distress syndrome; I48.19 Other persistent atrial fibrillation; I25.5 Ischemic cardiomyopathy; I08.3 Combined rheumatic disorders of mitral, aortic and tricuspid valves; G43.909 Migraine, unspecified, not intractable, without status migrainosus; D64.9 Anemia, unspecified; E83.42 Hypomagnesemia; E83.51 Hypocalcemia; E87.6 Hypokalemia; Z20.822 Contact with and (suspected) exposure to COVID-19; Z79.01 Long term (current) use of anticoagulants; Z79.899 Other long term (current) drug therapy; Z87.891 Personal history of nicotine dependence; Z99.81 Dependence on supplemental oxygen; Z71.3 Dietary counseling and surveillance
CPT/HCPCS: 36415; 71045; 71275; 80048; 80053; 82330; 83605; 83735; 83880; 84484; 85025; 85379; 85610; 85730; 87635; 93005; 94660; 96361; 96365; 96366; 96375; 99285

== ENCOUNTER → 2022-05-31 | Outpatient (CLI) | payer BC ==
[2022-05-31 14:37] LABS: HCT 37.3 % (37.2-46.3); MCH 30.2 pg (27.0-32.0); MCHC 32.2 g/dL (32.0-37.0); MCV 93.7 fL (80.0-97.0); Mean Platelet Volume 10.8 fL (9.5-12.2); NRBC Per 100 WBC 0 /100 WBCS (0.0-0.0); Platelet Count 276 X 10*3/uL (140-440); RBC 3.98 X 10*6/uL (4.10-5.20); RDW 15.1 % (11.5-14.5); WBC 5.33 X 10*3/uL (4.50-10.00)
[2022-05-31 14:52] LABS: African American GFR (CKD) 63.8 (60.0-200.0); Anion Gap 7.5 mmol/L (10.00-18.00); Blood Urea Nitrogen 27.6 mg/dL (9.0-27.0); Carbon Dioxide 26.6 mmol/L (20.0-27.5); Potassium 4.4 mmol/L (3.5-5.5)
== END | disposition home or self-care (01) ==
LOC: LABPAT 08:53
PROVIDERS: ATTEND Internal Medicine Clinical Cardiac Electrophysiology
DX: Z01.812 Encounter for preprocedural laboratory examination (principal); I48.11 Longstanding persistent atrial fibrillation
CPT/HCPCS: 36415; 80051; 82565; 84520; 85027

== ENCOUNTER 2022-06-15 08:50 | Day surgery (SDC) | payer BC, MEDICARE ==
[~2022-06-15 08:50] MED LIST changes: +HYDROmorphone 0.5 MG/0.5 ML SYRINGE IVP PRN; -SODIUM CHLORIDE 0.9% 1,000 ML IV SCH
[2022-06-15] MEDS ORDERED: SODIUM CHLORIDE 0.9% 1,000 ML IV ONE (09:38)
--- NOTE | 2022-06-15 12:16 | P.HPCAR ---
History of Present Illness This is Dr. Martinez dictating an H/P on this patient The patient was interviewed and examined IMPRESSION / ASSESSMENT: Persistent symptomatic atrial fibrillation Cardio myopathy with 3+ mitral regurgitation Severely dilated left atrium Normal TSH PLAN: Pulmonary vein isolation and linear ablation of the left atrium HPI Patient has had very symptomatic episodes of atrial fibrillation During these episodes she is very short of breath and unable to carry on with her activities of daily living She has severe LV dysfunction ejection fraction 20 have been 25% with 3+ central MR Severely dilated left atrium ROS: No fever chills or rigors, no cough, phlegm or expectoration, no nausea, vomiting or diarrhea, no hematuria, dysuria, no musculoskeletal complaints, no strokes or seizures, no skin lesions. EXAMINATION: Afebrile 98.1F, blood pressure 129/75 milligrams mercury pulse rate in the 60s No JVD no hepatojugular reflux Normal heart sounds I cannot appreciate systolic murmur Lungs reduced breath sounds bilaterally with scattered crackles at the bases No lower extremity edema REVIEW OF LABS, ECG & MEDICAL DATA Currently on amitriptyline, metoprolol, amiodarone, Cozaar, Lasix, ELIQUIS Physical Exam Vitals: Vital Signs Temp Pulse Resp BP Pulse Ox 06/15/22 09:53 98.1 F 60 16 129/75 93 L Intake and Output 06/14/22 06/15/22 06/15/22 22:59 06:59 14:59 Other: Weight 60.9 kg Past Medical History Past Medical History: Atrial Fibrillation, Osteoarthritis (OA) Additional Past Medical History / Comment(s): History of migraines, "low blood pressure", See Dr Martinez's H & P History of Any Multi-Drug Resistant Organisms: None Reported Past Surgical History: Hysterectomy Additional Past Surgical History / Comment(s): Colonoscopy 5 years ago, cardioversion 03/09/22. Past Anesthesia/Blood Transfusion Reactions: No Reported Reaction Smoking Status: Former smoker - Past Family History Mother Family Medical History: No Reported History Additional Family Medical History / Comment(s): Passed of old age at 84. Father Family Medical History: No Reported History Additional Family Medical History / Comment(s): Passed of old age at 92. Physical Examination Vital Signs Temp Pulse Resp BP Pulse Ox 06/15/22 09:53 98.1 F 60 16 129/75 93 L Intake and Output 06/14/22 06/15/22 06/15/22 22:59 06:59 14:59 Other: Weight 60.9 kg Results Current Medications Generic Name Dose Route Start Last Admin Trade Name Freq PRN Reason Stop Dose Admin Hydromorphone HCl 0.5 mg 06/15/22 06:03 Hydromorphone 0.5 Mg/0.5 Ml Syringe IVP 06/15/22 23:00 Q5M PRN Phase 1 or 2 - Pain Control Sodium Chloride 1,000 mls @ 20 mls/hr 06/11/22 17:00 Saline 0.9% IV 07/11/22 17:01 .Q24H LORETTA Lactated Ringer's 1,000 mls @ 20 mls/hr 06/15/22 06:03 Lactated Ringers IV 07/15/22 06:04 .Q24H LORETTA Intake and Output 06/14/22 06/15/22 06/15/22 22:59 06:59 14:59 Other: Weight 60.9 kg Patient Weight 06/16/22 06:59 Weight 60.9 kg
[2022-06-15] MEDS ORDERED: fentaNYL (PF) 50 MCG/ML 2 ML AMP ONE (12:29)
[2022-06-15] MEDS ORDERED: PHENYLEPHRINE-0.9% NACL SYG 1,000 MCG/10 ML SYRINGE ONE (12:29)
[2022-06-15] MEDS ORDERED: LIDOCAINE 2% INJ 20 MG/ML (2 ML VIAL) ONE (12:29)
[2022-06-15] MEDS ORDERED: PROPOFOL 10 MG/ML 20 ML VIAL IV ONE (12:29)
[2022-06-15] MEDS ORDERED: SUCCINYLCHOLINE CHLORIDE 200 MG/10 ML VIAL IV ONE (12:29)
[2022-06-15] MEDS ORDERED: MIDAZOLAM 2 MG/2 ML VIAL ONE (12:29)
[2022-06-15] MEDS ORDERED: LIDOCAINE 1% INJ 10MG/ML (30 ML VIAL-PF) SQ ONE (13:09)
[2022-06-15] MEDS ORDERED: IOPAMIDOL-370 100ML BTL INJ ONE (14:45)
[2022-06-15] MEDS ORDERED: HEPARIN SOD,PORK IN 0.45% NACL 25,000 UNIT in 0.45% NACL 1 250ML.BAG IV ONE (14:46)
[2022-06-15] MEDS ORDERED: ACETAMINOPHEN IV (For NPO) 1,000 MG in EMPTY BAG 1 BAG IVPB ONE (15:40)
[2022-06-15] MEDS ORDERED: ACETAMINOPHEN TAB 325 MG TAB PO PRN (15:40)
[2022-06-15] MEDS ORDERED: SUMAtriptan succinate 50 MG TAB PO PRN (15:45)
--- NOTE | 2022-06-15 15:59 | P.EPPROC ---
- EP Procedure Note Electrophysiology Procedure Note: PROCEDURE A. fib ablation with PVI /left atrial septal ablation/left atrial roof ablation DIAGNOSIS Persistent Atrial fibrillation, symptomatic, refractory to therapy Associated atrial fibrillation related cardio myopathy and 3+ mitral regurgitation with congestive heart failure RESULT No left atrial appendage mass seen on intracardiac echo Normalization of LV function in sinus rhythm, dilated left atrium Evidence of pericarditis with a small organized effusion over the left ventricle especially at the base and around the left atrium/OSCAR Successful A. fib ablation/pulmonary vein isolation of all veins using cryo- ablation Successful left atrial septal ablation Successful left atrial roof ablation No evidence for phrenic nerve injury Esophageal deflection YES, extreme left sided esophagus PROCEDURE DETAILS Patient was brought to the EP lab in a fasting state after obtaining written informed consent. Procedure performed under general anesthesia Esophagus was intubated. Esophageal temperature monitoring with circa catheter. Esophageal deflection with an endoscope to avoid hypothermia of the esophagus. After initial muscle relaxant use, muscle relaxants were not given thereafter in order to assess phrenic nerve during procedure. Patient prepped and draped as per protocol Cryo ablation-set up with standard preparation of the cryoablation tools done. Femoral Venous access obtained on the right and left groins and sheaths placed Diagnostic catheters for the high right atrium, phrenic nerve stimulation and pacing, His bundle, coronary sinus placed Intracardiac echo catheter placed. Long sheath placed in the right atrium Left and right transseptal catheterization performed under intracardiac echo guidance. Intravenous heparin with aCT above 300 Later, catheter positioning and balloon positioning in the left atrium and pulmonary veins, under intracardiac echo guidance Diagnostic EP study with coronary sinus pacing and recording Baseline measurements: Sinus cycle length 1087 ms, VT interval 160 ms, QRS 78 ms and QT interval 502 ms AH interval 41 ms and HV interval 35 ms Sinus recovery times at 600, 500 and 400 ms were 945 ms, 1140 ms and 823 ms. AV node Wenckebach block 330 mid second Transseptal catheterization performed RA pressure 10/6/8 LA pressure 15/6/9 Transseptal catheterization performed with standard sheath. The cryoablation sheath was then placed with an over the wire exchange without any acute complications. The cryoablation balloon was placed in the office of each pulmonary vein and all 4 pulmonary veins were isolated. IV dye was injected to confirm occlusion. Goal: achieve complete occlusion of the pulmonary vein, achieve -30 degrees C at 30 seconds and achieve -40 degrees C at 60 seconds and a time to effect of less than 60 seconds. If not, the balloon was repositioned to obtain this result After completion of Cryoblation with durations from 180-240 seconds, entrance block was confirmed with the Attain circular catheter in a roving fashion around the antrum of the pulmonary veins Phrenic nerve pacing was performed from the SVC, right innominate vein area and diaphragm voltage was monitored. Diaphragmatic contractions were also monitored manually for strength of contraction. Left atrial roof ablation was performed The patient had a very dilated left atrium Along linear ablation was performed with serial overlapping cryoablation lesions The mid roof was particularly difficult to stabilize Her but we were able to achieve contiguous lesions The left atrial septum was also isolated especially the gmaal in between the right superior and right inferior pole veins which is quite prominent on intracardiac echo The most difficult part of the procedure was isolating the left superior and left inferior veins on account of the angulation of the veins and the fact that they were a common vein In addition the patient had an extreme left esophagus and therefore multiple shorter lesions had to be applied to avoid thermal injury to the esophagus which is also deflected This resulted in a longer than usual procedure At the end of the procedure the Achieve catheter was once again used to check for entrance block Phrenic nerve stimulation was performed to confirm diaphragmatic stimulation the end of the procedure Cine fluoroscopy was performed at the very end of the procedure to confirm movement of both diaphragms with inspiration and expiration At the end of the procedure the patient was extubated Venous sheaths were removed and hemostasis assured with a closure device PROCEDURES PERFORMED Diagnostic EP study CS pacing and recording Left and right transseptal catheterization Catheter the mapping of the tachycardia Intracardiac echocardiography Pulmonary vein isolation with transseptal and comprehensive EPS, [id number] Drug infusion, +[id number] Extended procedure duration Left atrial roof line, +[id number] Linear ablation, left atrium, +[id number]
--- NOTE | 2022-06-15 16:00 | P.PRLE ---
RE: Izzy Fang Dear Babar Burrows underwent an A. fib ablation for management of asymptomatic persistent atrial fibrillation that resulted in coronary myopathy and 3+ mitral regurgitati on On intracardiac echo there was evidence of pericarditis with a small organized effusion around the left atrium and base of LV She underwent successful ablation in the left atrium for management of atrial fibrillation I would continue anticoagulation and continue amiodarone for at least 3 months She will continue to follow with you and Dr. Tinajero as before Thank you for entrusting me with the care of the patient Warm regards Sincerely Wilner Martinez
[2022-06-15] MEDS: SODIUM CHLORIDE 0.9% 1,000 ML IV SCH ×2 (17:01→21:13)
[2022-06-15] MEDS: APIXABAN 5 MG TAB PO SCH (20:11)
[2022-06-16] MEDS: SODIUM CHLORIDE 0.9% 1,000 ML IV SCH (00:36)
[2022-06-16 06:29] VITALS: BP 124/70; PULSE 95; RESP 16; TEMP 97.8
--- NOTE | 2022-06-16 07:46 | P.DS ---
Providers Attending physician: Wilner Martinez Primary care physician: Stated None Hospital Course: She is doing well No chest discomfort dizziness or lightheadedness She has a sore throat Use patient was in from the left groin. (Stopped No hematoma at all Minimal tenderness On examination heart sounds are normal breath sounds are clear Blood pressure 124/70 mmHg Twelve-lead EKG is normal Impression Persistent atrial fibrillation Small effusive pericarditis Cardio myopathy with A. fib Enlarged left atrium Successful A. fib ablation but of plan Continue and granulation continue low-dose amiodarone for 2 months then stop Follow-up with Dr. Tinajero Continue anticoagulation lifelong Plan - Discharge Summary Discharge Rx Participant: No New Discharge Prescriptions: Continue SUMAtriptan succinate [Imitrex] 50 mg PO BID PRN PRN Reason: Migraine Headache Calcium Carbonate [Calcium] 600 mg PO DAILY Cholecalciferol [Vitamin D3 (25 Mcg = 1000 Iu)] 50 mcg PO DAILY Apixaban [Eliquis] 5 mg PO BID #60 tab Losartan [Cozaar] 12.5 mg PO DAILY #60 tab Amitriptyline HCl [Elavil] 100 mg PO DAILY Metoprolol Succinate (ER) [Toprol XL] 100 mg PO DAILY Furosemide [Lasix] 20 mg PO DAILY #30 tab Amiodarone [Cordarone] 100 mg PO DAILY Discharge Medication List SUMAtriptan succinate [Imitrex] 50 mg PO BID PRN 07/30/14 [History] Calcium Carbonate [Calcium] 600 mg PO DAILY 06/17/17 [History] Cholecalciferol [Vitamin D3 (25 Mcg = 1000 Iu)] 50 mcg PO DAILY 02/16/22 [History] Apixaban [Eliquis] 5 mg PO BID #60 tab 02/17/22 [Rx] Losartan [Cozaar] 12.5 mg PO DAILY #60 tab 02/18/22 [Rx] Amiodarone [Cordarone] 100 mg PO DAILY 03/08/22 [History] Amitriptyline HCl [Elavil] 100 mg PO DAILY 03/08/22 [History] Metoprolol Succinate (ER) [Toprol XL] 100 mg PO DAILY 03/08/22 [History] Furosemide [Lasix] 20 mg PO DAILY #30 tab 03/12/22 [Rx] Follow up Appointment(s)/Referral(s): Yaya Tinajero DO [STAFF PHYSICIAN] - 1 Week Activity/Diet/Wound Care/Special Instructions: Post EP study - Ablation instructions 1. Keep access sites dry for 2 days. 2. No heavy lifting or straining for 2 days. 3. Avoid bending the hips repeatedly for 2 days. 4. You may go up and down stairs slowly Call if the following is noted 1. Bleeding, increasing swelling or pain at the access sites. 2. Increasing chest discomfort, especially upon taking a deep breath. 3. Increasing shortness of breath, at rest or with exertion. 4. Undue cough / phlegm 5. Difficulty or pain while swallowing. 6. Pain or change in color in the extremities. 7. Fever, chills, rigors. 8. Increasing headache or neurologic symptoms. 9. Dizziness, fainting, palpitations No change in medications Follow-up with Dr. Tinajero in a week Discharge Disposition: HOME SELF-CARE
[2022-06-16] MEDS: APIXABAN 5 MG TAB PO SCH (08:40)
[2022-06-16] MEDS ORDERED: AMIODARONE 100 MG TAB PO SCH (09:00)
[2022-06-16] MEDS ORDERED: LOSARTAN 25 MG TAB PO SCH (09:00)
[2022-06-16] MEDS ORDERED: METOPROLOL SUCCINATE (ER) 100 MG TAB.ER.24H PO SCH (09:00)
[2022-06-16] MEDS ORDERED: FUROSEMIDE 20 MG TAB PO SCH (09:00)
== END 2022-06-16 11:45 | disposition home or self-care (01) ==
LOC: CATHEP 08:50 → 6NMEDSUR 15:24 → CATHEP 06-16 11:45
PROVIDERS: ATTEND Internal Medicine Clinical Cardiac Electrophysiology
DX: I48.19 Other persistent atrial fibrillation (principal); I42.9 Cardiomyopathy, unspecified; I34.0 Nonrheumatic mitral (valve) insufficiency; I51.7 Cardiomegaly; I50.9 Heart failure, unspecified; M19.90 Unspecified osteoarthritis, unspecified site; Z79.01 Long term (current) use of anticoagulants; Z79.899 Other long term (current) drug therapy; Z86.79 Personal history of other diseases of the circulatory system; Z16.30 Resistance to unspecified antimicrobial drugs; Z86.69 Personal history of other diseases of the nervous system and sense organs; Z98.890 Other specified postprocedural states; Z87.891 Personal history of nicotine dependence
CPT/HCPCS: 93656; 93657; C1759; C1769 ×3; C1760; C1730 ×2; C1893; C1733; C1766; J2250; J0330; J2001 ×2; J3010; J2370; J2704; Q9967; J1644

== ENCOUNTER → 2022-12-20 | Outpatient (CLI) | payer BC ==
--- NOTE | 2022-12-20 22:45 | BD ---
EXAMINATION TYPE: Axial Bone Density DATE OF EXAM: 12/20/2022 CLINICAL HISTORY: 72 years old Female. ICD-10 CODE: C79342 OSTEO SCREENING Height: 62 in Weight: 138 lbs FRAX RISK QUESTIONS: Secondary Osteoporosis: 3. Menopause before 45: total hysterectomy age 46 RISK FACTORS HISTORY OF: Active: yes Diet low in dairy products/other sources of calcium: yes Postmenopausal woman: total hysterectomy age 46 Take estrogen and/or progesterone medications: not now How long: took for 5 years MEDICATIONS: Additional Medications: calcium, vit d, EXAM MEASUREMENTS: Bone mineral densitometry was performed using the [employer]. Bone mineral density as measured about the Lumbar spine is: ----- L1-L4(G/cm2): 1.149 T Score Values are as follows: ----- L1: -1.6 ----- L2: -0.6 ----- L3: -0.3 ----- L4: 1.1 ----- L1-L4: -0.3 Z Score Values are as follows: ----- L1: 0.2 ----- L2: 1.1 ----- L3: 1.5 ----- L4: 2.8 ----- L1-L4: 1.5 Bone mineral density baseline Bone mineral density about the R hip (g/cm2): 0.981 Bone mineral density about the L hip (g/cm2): 0.949 T Score values are as follows: -----R Neck: -0.3 -----L Neck: -0.5 -----R Total: -0.2 -----L Total: -0.5 Z Score values are as follows: -----R Neck: 1.5 -----L Neck: 1.3 -----R Total: 1.4 -----L Total: 1.1 Bone mineral density baseline FRAX%s: The graph provided illustrates a 8.3% chance for a major osteoporotic fx and a 0.7% chance fo r the hips probability for fx in 10 years time. IMPRESSION: Normal (Values between +1 and -1 indicate normal bone mass). Consider repeating this study in 5 year s or sooner if there is some new clinical indication. NOTE: T-SCORE=SD OF THE YOUNG ADULT MEAN.
--- NOTE | 2022-12-21 08:07 | MM ---
Reason for Exam: Screening (asymptomatic). Last mammogram was performed 1 year(s) and 3 month(s) ago. Patient History: Menarche at age 14. Patient has no children. Left ovary removed at age 55. Right ovary removed at age 55. Hysterectomy at age 55. Postmenopausal. Patient used Estrogen for 7 years. Patient used Hormonal Contraceptives for 7 years. 2002, Bilateral Implant Removal. Bilateral Implants. Risk Values: Mesha 5 year model risk: 1.9%. NCI Lifetime model risk: 5.4%. Prior Study Comparison: 08/23/2019 Bilateral Screening Mammogram, [facility]. 10/10/2020 Bilateral Screening Mammogram, [facility]. 10/12/2021 Bilateral Screening Mammogram, [facility]. Tissue Density: There are scattered fibroglandular densities. Findings: Analyzed By CAD. There is no suspicious group of microcalcifications or new suspicious mass in either breast. Stable asymmetric left regional inner lower quadrant retained silicone. Overall Assessment: Benign, BI-RAD 2 Management: Screening Mammogram of both breasts in 1 year. A clinical breast exam by your physician is recommended on an annual basis and results should be correlated with mammographic findings. Electronically signed and approved by: Daniel George D.O.
== END | disposition home or self-care (01) ==
LOC: RADMAMWWP 07:26
PROVIDERS: ATTEND Family Medicine
DX: Z12.31 Encounter for screening mammogram for malignant neoplasm of breast (principal); Z13.820 Encounter for screening for osteoporosis; M85.88 Other specified disorders of bone density and structure, other site; Z78.0 Asymptomatic menopausal state
CPT/HCPCS: 77063; 77067; 77080

== ENCOUNTER 2023-06-01 14:24 | Emergency (ER) | payer BC ==
[2023-06-01] MEDS ORDERED: SODIUM CHLORIDE 0.9% 1,000 ML IV STA (14:27)
[2023-06-01 14:45] LABS: Basophils % (A) 0 %; Eosinophils # (A) 0.2 k/uL (0-0.7); Eosinophils % (A) 3 %; HCT 36.3 % (34.0-46.0); HGB 12.3 gm/dL (11.4-16.0); Lymphocytes # (A) 2.2 k/uL (1.0-4.8); Lymphocytes % (A) 31 %; MCH 31.3 pg (25.0-35.0); MCHC 33.8 g/dL (31.0-37.0); MCV 92.5 fL (80.0-100.0); Mean Platelet Volume 7.5; Monocytes # (A) 0.3 k/uL (0-1.0); Monocytes % (A) 4 %; Neutrophils # (A) 4.2 k/uL (1.3-7.7); Neutrophils % (A) 59 %; Platelet Count 300 k/uL (150-450); RBC 3.92 m/uL (3.80-5.40); RDW 13.4 % (11.5-15.5); WBC 7.1 k/uL (3.8-10.6)
--- NOTE | 2023-06-01 14:46 | XR ---
EXAMINATION TYPE: XR pelvis AP view DATE OF EXAM: 06/01/2023 CLINICAL HISTORY: pain TECHNIQUE: Single view the pelvis is submitted. FINDINGS: No evidence for fracture, dislocation or bony lesion. Joint spaces are well-preserved. S I joints appear symmetric. IMPRESSION: 1. No acute fracture or dislocation seen. ICD 10 NO FRACTURE, INITIAL EVALUATION
--- NOTE | 2023-06-01 14:50 | ED ---
General Adult HPI - General Chief complaint: Fall Stated complaint: Fell off Horse Time Seen by Provider: 06/01/23 14:31 Source: patient, EMS, RN notes reviewed, old records reviewed Mode of arrival: EMS Limitations: no limitations - History of Present Illness Initial comments: Patient is a 72-year-old female presents emergency Department after a fall. Patient fell off the horse. Initially told EMS she was not on any blood thinners or any medications however patient does have a history of A. fib and states that she is not had any changes to any medications. Patient was evaluated in trauma bay 4. After the fall she does not believe she lost con sciousness. She did feel nauseous and had an episode of emesis but currently feels improved. Is alert and oriented 4. GCS 15. No acute complaints at this time. Presents for further evaluation after fall. - Related Data Home Medications Medication Instructions Recorded Confirmed SUMAtriptan succinate [Imitrex] 50 mg PO BID PRN 07/30/14 06/11/22 Calcium Carbonate [Calcium] 600 mg PO DAILY 06/17/17 06/15/22 Cholecalciferol [Vitamin D3 (25 50 mcg PO DAILY 02/16/22 06/15/22 Mcg = 1000 Iu)] Amiodarone [Cordarone] 100 mg PO DAILY 03/08/22 06/15/22 Amitriptyline HCl [Elavil] 100 mg PO DAILY 03/08/22 06/15/22 Metoprolol Succinate (ER) [Toprol 100 mg PO DAILY 03/08/22 06/15/22 XL] Previous Rx's Medication Instructions Recorded Apixaban [Eliquis] 5 mg PO BID #60 tab 02/17/22 Losartan [Cozaar] 12.5 mg PO DAILY #60 tab 02/18/22 Furosemide [Lasix] 20 mg PO DAILY #30 tab 03/12/22 Allergies Allergy/AdvReac Type Severity Reaction Status Date / Time No Known Allergies Allergy Verified 06/01/23 14:37 Review of Systems ROS Statement: Those systems with pertinent positive or pertinent negative responses have been documented in the HPI. Review of Systems: CONST: Denies fever EYES: Denies blurry vision ENT: Denies nasal congestion C/V: Denies Chest pain RESP: Denies shortness of breath GI: Denies abdominal pain : Denies dysuria SKIN: Denies rash. MSK: Denies joint pain. NEURO: Denies headache ROS Other: All systems not noted in ROS Statement are negative. Past Medical History Past Medical History: Atrial Fibrillation Additional Past Medical History / Comment(s): History of migraines, uses oxygen 2-4 L NC PRN, "low blood pressure", SOB, recent admission at the beginning of February for shortness of breath. History of Any Multi-Drug Resistant Organisms: None Reported Past Surgical History: Hysterectomy Additional Past Surgical History / Comment(s): Colonoscopy 5 years ago, cardioversion 03/09/22. Past Anesthesia/Blood Transfusion Reactions: No Reported Reaction Past Psychological History: No Psychological Hx Reported Smoking Status: Former smoker Past Alcohol Use History: Occasional Past Drug Use History: None Reported - Past Family History Mother Family Medical History: No Reported History Additional Family Medical History / Comment(s): Passed of old age at 84. Father Family Medical History: No Reported History Additional Family Medical History / Comment(s): Passed of old age at 92. General Exam - General Exam Comments Initial Comments: General: Appears in no acute distress. HEAD: Normal with no signs of head trauma. Negative ribera sign. Negative raccoon eyes. EYES: PERRLA, EOMI, conjunctiva normal, no discharge. Pupils 3 mm and equal bilaterally. ENT: Hearing grossly intact, normal oropharynx. RESPIRATORY: Clear breath sounds bilaterally. No wheezes, rales, or rhonchi. C/V: Regular rate and rhythm. S1 and S2 auscultated, no edema, peripheral pulses 2+ and intact throughout ABD: Abd is soft, nontender, nondistended EXT: Normal range of motion, no obvious deformity. Pelvis is stable. No midline cervical, thoracic, lumbar spine tenderness to palpation. SKIN: No rashes or lesions observed on exposed skin. NEURO: Alert and oriented x 4. Cranial nerves II-XII intact. No focal sensory or strength deficits. GCS of 15. Limitations: no limitations Course Vital Signs 06/01/23 06/01/23 14:26 14:56 Temperature 97.9 F Pulse Rate 71 Respiratory 18 18 Rate Blood Pressure 125/71 O2 Sat by Pulse 98 96 Oximetry Medical Decision Making - Medical Decision Making Was pt. sent in by a medical professional or institution (, PA, MANAGER RFID, urgent care, hospital, or custodial...) When possible be specific @ -No Did you speak to anyone other than the patient for history (EMS, parent, family, police, friend...)? What history was obtained from this source @ -No Did you review nursing and triage notes (agree or disagree)? Why? @ -I reviewed and agree with nursing and triage notes Were old charts reviewed (outside hosp., previous admission, EMS record, old EKG, old radiological studies, urgent care reports/EKG's, custodial records)? Report findings @ -Old charts reviewed. Differential Diagnosis (chest pain, altered mental status, abdominal pain women, abdominal pain men, vaginal bleeding, weakness, fever, dyspnea, syncope, h eadache, dizziness, GI bleed, back pain, seizure, CVA, palpatations, mental health, musculoskeletal)? @ -Intracranial injury, musculoskeletal skeletal injury, cervical spine injury, mechanical fall. This list is not all inclusive. EKG interpreted by me (3pts min.). @ -As above X-rays interpreted by me (1pt min.). @ -Chest x-ray reveals no obvious acute cardio pulmonary process. Pelvis x-ray reveals no obvious acute injury or process. CT interpreted by me (1pt min.). @ -CT brain, C-spine, facial bones negative for any acute injuries. Patient does have a tongue nodule seen on CT. U/S interpreted by me (1pt. min.). @ -None done What testing was considered but not performed or refused? (CT, X-rays, U/S, labs)? Why? @ -None What meds were considered but not given or refused? Why? @ -I offered analgesic medications which were declined. Did you discuss the management of the patient with other professionals (professionals i.e. , PA, MANAGER RFID, lab, RT, psych nurse, social service technician, rn hemodialysis charge, teacher, gunnery/ordnance officer, welfare case worker)? Give summary @ -No Was smoking cessation discussed for >3mins.? @ -No Was critical care preformed (if so, how long)? @ -yes 36 min Were there social determinants of health that impacted care today? How? (Homelessness, low income, unemployed, alcoholism, drug addiction, transportation, low edu. Level, literacy, decrease access to med. care, [facility], rehab)? @ -No Was there de-escalation of care discussed even if they declined (Discuss DNR or withdrawal of care, Hospice)? DNR status @ -No What co-morbidities impacted this encounter? (DM, HTN, Smoking, COPD, CAD, Cancer, CVA, ARF, Chemo, Hep., AIDS, mental health diagnosis, sleep apnea, morbid obesity)? @ -None Was patient admitted / discharged? Hospital course, mention meds given and route, prescriptions, significant lab abnormalities, going to OR and other pertinent info. @ -Based on the patient's presentation and physical exam, initially unknown if patient has a history of blood thinners but per chart patient is on blood thinning medications for atrial fibrillation. Therefore patient was mainly prior 2 trauma activation due to mechanism being on blood thinners. GCS is 15. Vital signs within except for limits. No obvious injuries. We will obtain trauma workup including CT brain, C-spine, facial bones as well as chest and pelvis x-ray and labs. She was in agreement this plan. Dr. Webber of trauma returned to our activation patient will be notified if any updates. Patient's imaging negative for any obvious traumatic injury. EKG unremarkable. Patient's labs within acceptable limits as well. Patient does appear to have a mild AK I but she was given IV fluids. On reevaluation, patient's cervical collar removed. C-spine is cleared. She is no acute complaints at this time. She'll be discharged home. We did discuss her tongue lesion seen on CT and I did provide her with ENT follow-up as well as copies of her imaging and report. She was in agreement this plan. I instructed the patient to follow up with their PCP in the next 1-3 days. I explained that the patient should return to the emergency department if they experience any worsening symptoms. Strict return precautions were discussed with the patient. The patient expressed understanding of these instructions. I answered all questions that the patient had. The patient was discharged home in good condition with their prescriptions and follow up information. Undiagnosed new problem with uncertain prognosis? @ -No Drug Therapy requiring intensive monitoring for toxicity (Heparin, Nitro, Insulin, Cardizem)? @ -No Were any procedures done? @ -No Diagnosis/symptom? @ -Fall, abrasion Acute, or Chronic, or Acute on Chronic? @ -Acute Uncomplicated (without systemic symptoms) or Complicated (systemic symptoms)? @ -Uncomplicated Side effects of treatment? @ -none Exacerbation, Progression, or Severe Exacerbation] @ -no Poses a threat to life or bodily function? @ -no Diagnosis/symptom? @ -Posterior tongue nodule Acute, or Chronic, or Acute on Chronic? @ -Likely chronic Uncomplicated (without systemic symptoms) or Complicated (systemic symptoms)? @ -Uncomplicated Side effects of treatment? @ -none Exacerbation, Progression, or Severe Exacerbation] @ -no Poses a threat to life or bodily function? @ -no - Lab Data Result diagrams: 06/01/23 14:38 06/01/23 14:38 Lab Results 06/01/23 06/01/23 06/01/23 Range/Units 14:30 14:35 14:38 WBC 7.1 (3.8-10.6) k/uL RBC 3.92 (3.80-5.40) m/uL Hgb 12.3 (11.4-16.0) gm/dL Hct 36.3 (34.0-46.0) % MCV 92.5 (80.0-100.0) fL MCH 31.3 (25.0-35.0) pg MCHC 33.8 (31.0-37.0) g/dL RDW 13.4 (11.5-15.5) % Plt Count 300 (150-450) k/uL MPV 7.5 Neutrophils % 59 % Lymphocytes % 31 % Monocytes % 4 % Eosinophils % 3 % Basophils % 0 % Neutrophils # 4.2 (1.3-7.7) k/uL Lymphocytes # 2.2 (1.0-4.8) k/uL Monocytes # 0.3 (0-1.0) k/uL Eosinophils # 0.2 (0-0.7) k/uL Basophils # 0.0 (0-0.2) k/uL PT (10.0-12.5) sec INR (<1.2) APTT (22.0-30.0) sec Sodium (137-145) mmol/L Potassium (3.5-5.1) mmol/L Chloride (98-107) mmol/L Carbon Dioxide (22-30) mmol/L Anion Gap mmol/L BUN (7-17) mg/dL Creatinine (0.52-1.04) mg/dL Est GFR (CKD-EPI)AfAm (>60 ml/min/1.73 sqM) Est GFR (CKD-EPI)NonAf (>60 ml/min/1.73 sqM) Glucose (74-99) mg/dL POC Glucose (mg/dL) (70-110) mg/dL POC Glu Learning Disabilities Resource Teacher ID Calcium (8.4-10.2) mg/dL Total Bilirubin (0.2-1.3) mg/dL AST (14-36) U/L ALT (4-34) U/L Alkaline Phosphatase (38-126) U/L Total Protein (6.3-8.2) g/dL Albumin (3.5-5.0) g/dL Serum Alcohol mg/dL Blood Type O Positive Blood Type Confirm O Positive Blood Type Recheck No Previous Record Bld Type Recheck Status CABO Indicated Antibody Screen NEGATIVE Spec Expiration Date 06/04/2023 - 233706/01/23 06/01/23 06/01/23 Range/Units 14:38 14:38 14:52 WBC (3.8-10.6) k/uL RBC (3.80-5.40) m/uL Hgb (11.4-16.0) gm/dL Hct (34.0-46.0) % MCV (80.0-100.0) fL MCH (25.0-35.0) pg MCHC (31.0-37.0) g/dL RDW (11.5-15.5) % Plt Count (150-450) k/uL MPV Neutrophils % % Lymphocytes % % Monocytes % % Eosinophils % % Basophils % % Neutrophils # (1.3-7.7) k/uL Lymphocytes # (1.0-4.8) k/uL Monocytes # (0-1.0) k/uL Eosinophils # (0-0.7) k/uL Basophils # (0-0.2) k/uL PT 10.5 (10.0-12.5) sec INR 0.9 (<1.2) APTT 22.2 (22.0-30.0) sec Sodium 138 (137-145) mmol/L Potassium 3.8 (3.5-5.1) mmol/L Chloride 105 (98-107) mmol/L Carbon Dioxide 23 (22-30) mmol/L Anion Gap 10 mmol/L BUN 34 H (7-17) mg/dL Creatinine 1.51 H (0.52-1.04) mg/dL Est GFR (CKD-EPI)AfAm 40 (>60 ml/min/1.73 sqM) Est GFR (CKD-EPI)NonAf 35 (>60 ml/min/1.73 sqM) Glucose 109 H (74-99) mg/dL POC Glucose (mg/dL) 87 (70-110) mg/dL POC Glu Learning Disabilities Resource Teacher ID Elida Bains Calcium 9.2 (8.4-10.2) mg/dL Total Bilirubin 0.2 (0.2-1.3) mg/dL AST 47 H (14-36) U/L ALT 37 H (4-34) U/L Alkaline Phosphatase 78 (38-126) U/L Total Protein 6.1 L (6.3-8.2) g/dL Albumin 3.6 (3.5-5.0) g/dL Serum Alcohol <10 mg/dL Blood Type Blood Type Confirm Blood Type Recheck Bld Type Recheck Status Antibody Screen Spec Expiration Date - EKG Data -: EKG Interpreted by Me EKG Comments: 12-lead Electrocardiogram Interpretation Note EKG was reviewed and interpreted by myself. 12-lead ECG performed at 1434 is interpreted by me as revealing normal sinus rhythm at a rate of 74 beats per minute. Prewitt is normal. IA interval is 143 ms, QRS duration is 86 seconds, QTC is 423 ms.. There were no ST or T wave abnormalities to suggest myocardial ischemia or injury. R wave progression across the precordium was satisfactory. By my interpretation this EKG is non-diagnostic for acute ischemia. Disposition Clinical Impression: Fall, Abrasion, Nodule of tongue Disposition: HOME SELF-CARE Condition: Good Instructions (If sedation given, give patient instructions): Fall Prevention for Older Adults (ED) Additional Instructions: follow up with ENT for direct visualization of tongue lesion Is patient prescribed a controlled substance at d/c from ED?: No Referrals: Babar Farr MD [Primary Care Provider] - 1-2 days Matthew Chapman MD [STAFF PHYSICIAN] - 1-2 days Time of Disposition: 16:55
[2023-06-01 14:55] LABS: Glucose,Whole Blood 87 mg/dL (70-110)
[2023-06-01 15:01] LABS: INR 0.9 (<1.2)
[2023-06-01 15:02] LABS: Partial Thromboplastin Time 22.2 sec (22.0-30.0); Prothrombin Time 10.5 sec (10.0-12.5)
[2023-06-01 15:05] VITALS: BP 125/71; PULSE 71; RESP 18; TEMP 97.9
--- NOTE | 2023-06-01 15:08 | CT ---
EXAMINATION TYPE: CT brain lauren goodman con DATE OF EXAM: 06/01/2023 COMPARISON: None HISTORY: fall CT DLP: 720.[address] of the brain was performed. The ventricles, basal cisterns and sulci overlying the cerebral convexities demonstrate mild enlargem ent. There is no evidence for intracranial hemorrhage or sulcal effacement. There is decreased attenuatio n about the periventricular white matter and deep white matter of both cerebral hemispheres, compatib le with chronic small vessel ischemia. No mass effects are seen. If symptoms persist consider MRI. Osseous calvarium is intact. Right parietal scalp hematoma noted. IMPRESSION: 1. Age related atrophic and chronic small vessel ischemic change without acute intracranial process seen at this time. CT Cervical Spine: Unenhanced CT of the cervical spine was performed with bone and soft tissue window settings submitted . Coronal and sagittal reconstruction is obtained. There is normal alignment and prevertebral soft tissues. No evidence for acute cervical fracture . Scattered degenerative disc disease and spondylosis. Biapical scarring. IMPRESSION: 1. No evidence for acute fracture or subluxation of the cervical spine.
--- NOTE | 2023-06-01 15:17 | CT ---
EXAMINATION TYPE: CT facial bones wo con DATE OF EXAM: 06/01/2023 COMPARISON: None HISTORY: 72-year-old female with pain after fall TECHNIQUE: Contiguous axial scanning of the facial bones without IV contrast. Coronal and sagittal re constructions performed. CT DLP: 306.2 mGycm Automated exposure control for dose reduction was used. FINDINGS: 8 mm nodular thickening along the right midline vallecular septum. Direct visualization to exclude a mucosal lesion. The mandible and TMJs as well as the pterygoid plates and zygomatic arches are intact. No facial bone or nasal bone fracture is seen. Rightward nasal septal deviation. Paranasal sinuses an d mastoid air cells are well pneumatized. Orbits and globes are intact. IMPRESSION: NO ACUTE FACIAL BONE FRACTURE SEEN. 8MM NODULARITY RIGHT MIDLINE VALLECULAR SEPTUM AT THE POSTERIOR TONGUE. WHEN ABLE, ENT REFERRAL FOR D IRECT VISUALIZATION TO EXCLUDE A MUCOSAL LESION.
[2023-06-01 15:18] LABS: ALT 37 U/L (4-34); AST 47 U/L (14-36); African American GFR (CKD) 40 (>60 ml/min/1.73 sqM); Albumin 3.6 g/dL (3.5-5.0); Alcohol <10 mg/dL; Alkaline Phosphatase 78 U/L (38-126); Anion Gap 10 mmol/L; Blood Urea Nitrogen 34 mg/dL (7-17); Calcium 9.2 mg/dL (8.4-10.2); Carbon Dioxide 23 mmol/L (22-30); Chloride 105 mmol/L (98-107); Glucose 109 mg/dL (74-99); Non-African American GFR(CKD) 35 (>60 ml/min/1.73 sqM); Potassium 3.8 mmol/L (3.5-5.1); Sodium 138 mmol/L (137-145); Total Bilirubin 0.2 mg/dL (0.2-1.3); Total Protein 6.1 g/dL (6.3-8.2)
--- NOTE | 2023-06-01 16:42 | XR ---
EXAMINATION TYPE: XR chest 1V portable DATE OF EXAM: 06/01/2023 Comparison: 03/10/2022 Clinical History: 72-year-old female pain after trauma Findings: Heart normal size. Aorta and pulmonary vasculature within normal limits. No consolidation, pneumothor ax, or pleural effusion. Old healed left-sided rib fracture deformities. Impression: No acute cardiopulmonary process.
== END 2023-06-01 18:00 | disposition home or self-care (01) ==
LOC: EC 14:24
DX: S00.512A Abrasion of oral cavity, initial encounter (principal); N17.9 Acute kidney failure, unspecified; Z87.891 Personal history of nicotine dependence; V80.010A Animal-rider injured by fall from or being thrown from horse in noncollision accident, initial encounter; Y93.52 Activity, horseback riding
CPT/HCPCS: 36415; 70450; 70486; 71045; 72125; 72170; 80053; 80320; 85025; 85610; 85730; 86850; 86900; 86901; 93005; 96360; 99291

== ENCOUNTER 2023-10-19 08:32 | Day surgery (SDC) | payer BC ==
[2023-10-17 10:53] VITALS: BMI 21.4
[~2023-10-19 08:32] MED LIST changes: -HYDROmorphone 0.5 MG/0.5 ML SYRINGE IVP PRN; -LACTATED RINGERS 1,000 ML IV SCH; +LIDOCAINE 1% (10MG/ML) FOR IV START INTRADERMA PRN; +ONDANSETRON 4 MG/2 ML VIAL IVP PRN
[2023-10-19] MEDS: LACTATED RINGERS 1,000 ML IV SCH (09:40)
[2023-10-19] MEDS ORDERED: PROPOFOL 10 MG/ML 20 ML VIAL IV ONE (10:15)
[2023-10-19 10:27] VITALS: TEMP 98.4
--- NOTE | 2023-10-19 10:40 | P.PCN ---
Date of Procedure: 10/19/23 Procedure(s) Performed: BRIEF HISTORY: Patient is a 73-year-old pleasant female scheduled for an elective colonoscopy as a part of evaluation of prior history of colon polyps. Her last coloscopy was 5 years ago. PROCEDURE PERFORMED: Colonoscopy. PREOPERATIVE DIAGNOSIS: History of colon polyps. IV sedation per Anesthesia. PROCEDURE: After informed consent was obtained, the patient, was brought into the endoscopy unit. IV sedation was administered by Anesthesia under continuous monitoring. Digital rectal examination was normal. Initially the Olympus CF-160 flexible video colonoscope was then inserted in the rectum, gradually advanced into the cecum without any difficulty. Careful examination was performed as the scope was gradually being withdrawn. Ileocecal valve and the appendiceal orifice were visualized and appeared normal. Prep was excellent. Mucosa of the cecum, ascending colon, transverse colon, descending colon, sigmoid colon, and rectum appeared normal. Scattered left sided diverticulosis Retroflexion was performed in the rectum and no lesions were seen. The patient tolerated the procedure well. IMPRESSION: Normal-appearing colon from rectum to cecum with no evidence of colorectal neoplasia. Scattered left sided diverticulosis. RECOMMENDATIONS: Findings of this examination were discussed with the patient as well as a family. She was advised to have a repeat colonoscopy at age 81..
[2023-10-19 11:03] VITALS: RESP 16
[2023-10-19 11:36] VITALS: BP 125/73; PULSE 89
== END 2023-10-19 11:34 | disposition home or self-care (01) ==
LOC: ORWHC2ENDO 08:32
PROVIDERS: ATTEND Internal Medicine Gastroenterology
DX: Z12.11 Encounter for screening for malignant neoplasm of colon (principal); K57.30 Diverticulosis of large intestine without perforation or abscess without bleeding; I48.91 Unspecified atrial fibrillation; Z87.891 Personal history of nicotine dependence; Z90.710 Acquired absence of both cervix and uterus; Z79.01 Long term (current) use of anticoagulants; Z86.010 Personal history of colon polyps; Z79.899 Other long term (current) drug therapy
CPT/HCPCS: 45378; J2704

== ENCOUNTER → 2024-07-20 | Outpatient (CLI) | payer BC ==
--- NOTE | 2024-07-23 12:10 | MM ---
Reason for Exam: Screening (asymptomatic). Last mammogram was performed 1 year(s) and 7 month(s) ago. Patient History: Menarche at age 14. Patient has no children. Left ovary removed at age 55. Right ovary removed at age 55. Hysterectomy at age 55. Postmenopausal. Patient used Estrogen for 7 years. Patient used Hormonal Contraceptives for 7 years. 2002, Bilateral Implant Removal. Bilateral Implants. Risk Values: Mesha 5 year model risk: 2.0%. NCI Lifetime model risk: 4.8%. Prior Study Comparison: 10/10/2020 Bilateral Screening Mammogram, [facility]. 10/12/2021 Bilateral Screening Mammogram, [facility]. 12/20/2022 Bilateral MG 3D screening mammo w/cad, [facility]. Tissue Density: There are scattered areas of fibroglandular density. Findings: Analyzed By CAD. Right breast: There is no suspicious group of microcalcifications or new suspicious mass. Left breast: There is no suspicious group of microcalcifications or new suspicious mass. Overall Assessment: Negative, BI-RAD 1 Management: Screening Mammogram of both breasts in [address] [facility] will attempt to contact patient to return for supplemental views and ultrasound if indicated. Patient should continue monthly self-breast exams. A clinical breast exam by your physician is recommended on an annual basis. This exam should not preclude additional follow-up of suspicious palpable abnormalities. Note on Mesha scores and lifetime risk: 1. A Mesha score greater than 3% is considered moderate risk. If this is the case, consider specialist referral to assess eligibility for a risk reducing agent. 2. If overall lifetime risk for the development of breast cancer is 20% or higher, the patient may qualify for future screening with alternating mammogram and breast MRI. [facility], , 07/23/2024 12:07 PM. Electronically signed and approved by: Harpreet Mistry DO
== END | disposition home or self-care (01) ==
LOC: RADMAMWWP 06:54
PROVIDERS: ATTEND Family Medicine
DX: Z12.31 Encounter for screening mammogram for malignant neoplasm of breast (principal); Z78.0 Asymptomatic menopausal state; Z90.722 Acquired absence of ovaries, bilateral; R92.323 Mammographic fibroglandular density, bilateral breasts
CPT/HCPCS: 77063; 77067